=== PATIENT | male | born 1970 | race Caucasian/White ===

== ENCOUNTER 2020-04-30 08:07 | Outpatient (CLI) | payer OTHER, SELFPAY ==
--- NOTE | ~2020-04-30 | US_ITS ---
EXAMINATION: US abdomen limited DATE: 04/30/2020 08:50 INDICATION: Cirrhosis and hepatic encephalopathy. TECHNIQUE: Multiple grayscale and Doppler ultrasound images of the abdomen were obtained. COMPARISON: 01/11/2019 FINDINGS: The pancreatic head and body are normal in appearance. The pancreatic tail is not visualized. Cirrho sis with fine liver surface nodularity and heterogeneous echogenicity with coarsened echotexture. No liver lesion identified. No intrahepatic biliary duct dilation suspected. Portal venous flow was seen in the hepatopetal, normal direction and has normal Doppler waveform. The gallbladder is normal in a ppearance. There is no cholelithiasis. The common bile duct measures 4-5 mm, which is normal. Sonogr aphic Carbajal sign was reported as negative by the wind turbine mechanical engineer. Splenomegaly measuring 17.4 cm in maxi mal length suggesting portal venous hypertension. IMPRESSION: 1. Cirrhosis and splenomegaly suggesting associated portal venous hypertension. Reviewed, dictated and finalized at location A.
--- NOTE | ~2020-04-30 | XR_ITS ---
XR lumbar spine 2-3V DATE: 04/30/2020 08:49 INDICATION: Low back pain. History of fall one year ago. TECHNIQUE: AP, lateral , coned lateral lumbosacral views COMPARISON: 08/05/2019 lumbar spine FINDINGS: The lumbar vertebrae are normally aligned. No fracture or bone destruction or spondylolisth esis. Lumbar pedicles are intact. The lumbar and lumbosacral interspaces are relatively well preserve d. Mild degenerative spurring of the lumbar vertebrae and more prominently at the lower thoracic spin e. The sacroiliac joints appear normal. IMPRESSION: Mild degenerative changes Reviewed, dictated and finalized at location A. IMPRESSION: Mild degenerative changes
[2020-04-30 08:28] LABS: Basophils Percent Auto 1.4 % (0.0-1.0); Eosinophils Absolute Auto 0.24 K/mm3 (0.02-0.50); Eosinophils Percent Auto 3.3 % (1.0-6.0); Hematocrit 33.1 % (40.0-54.0); Hemoglobin 9.8 g/dL (14.0-18.0); Immature Granulocyte Absolute 0.02 K/mm3 (0.00-0.00); Immature Granulocyte Percent A 0.3 % (0.0-0.0); Lymphocytes Absolute Auto 1.97 K/mm3 (1.10-4.50); Mean Corpuscular HGB Conc 29.6 g/dL (32.0-36.0); Mean Corpuscular Hemoglobin 22.8 pg (27.0-31.0); Mean Platelet Volume 11.3 fl (8.7-11.0); Monocytes Absolute Auto 1.01 K/mm3 (0.10-0.90); Monocytes Percent Auto 13.8 % (2.0-11.0); Neutrophils Percent Auto 54.2 % (50.0-70.0); Platelet Count Result 169 K/mm3 (150-420); Red Cell Distribution Width 19.6 % (11.6-14.4); White Blood Count 7.3 K/mm3 (4.8-10.8)
[2020-04-30 08:39] LABS: INR 1.2; Prothrombin Time 12.7 Seconds (9.64-11.0)
[2020-04-30 09:14] LABS: Creatinine Urine 88.99 mg/dL (40-278); MALB Creatinine Ratio 84.7 mg/g (0-30); Microalbumin Urine Random 75.4 mg/L
[2020-04-30 09:18] LABS: Hemoglobin A1C 10.2 % (<5.7)
[2020-04-30 09:39] LABS: Alanine Aminotransferase 33 U/L (16-63); Albumin Level 3.5 g/dL (3.4-5.0); Alkaline Phosphatase 167 U/L (46-116); Anion Gap 15.2 mmol/L (7-16); Aspartate Amino Transferase 59 U/L (15-37); Bilirubin,Total 1.4 mg/dL (0.00-1.00); Blood Urea Nitrogen 5 mg/dL (7-18); Calcium 8.6 mg/dL (8.5-10.1); Carbon Dioxide 26 mmol/L (21-32); Chloride 99 mmol/L (98-108); Estimated Glomerular Filt Rate > 60; Glucose 206 mg/dL (70-99); Osmolality Calculated 285 mOsm/kg (285-295); Potassium 4.2 mmol/L (3.5-5.1); Sodium 136 mmol/L (136-145); Total Protein 8.2 g/dL (6.4-8.2)
[2020-05-02 12:16] LABS: Ceruloplasmin 32 mg/dL (18-36)
== END 2020-04-30 08:08 | disposition home or self-care (01) ==
PROVIDERS: PCP Nurse Practitioner Family; Visit Provider Nurse Practitioner Family
DX: K70.30 Alcoholic cirrhosis of liver without ascites (principal); K21.9 Gastro-esophageal reflux disease without esophagitis; F10.21 Alcohol dependence, in remission; M54.5 Low back pain; E11.9 Type 2 diabetes mellitus without complications
CPT/HCPCS: 36415; 72100; 76705; 80053; 82043; 82390; 83036; 85025; 85610

== ENCOUNTER 2020-05-14 13:18 | Outpatient (CLI) | payer OTHER, SELFPAY ==
--- NOTE | 2020-05-14 13:30 | ECHO_ITS ---
Patient Info Name: Julio Cesar Osman Age: 50 years : 1970 Gender: Male Ht: 70 in Wt: 247 lbs BSA: 2.39 m2 HR: 82 bpm BP: 160 / 92 mmHg Heart Rhythm: Sinus Rhythm Technical Quality: Good Exam Date: 05/14/2020 1:33 PM Exam Location: [facility] Patient Status: Outpatient Admit Date: 05/14/2020 Staff Ordering Physician: Merna Baumann NP Silk Top Hat Body Maker: Benito Juan RDCS Attending Provider: Merna Baumann NP Referring Physician: Pastor DENT; Exam Type: CA echo doppler color flow Study Info Indications I50.9 - Heart failure, unspecified Complete two-dimensional, color flow and Doppler transthoracic echocardiogram is performed. History/Risk Factors Heart failure; SOB, cirrhosis. Summary 1. Left ventricular chamber dimension is normal. 2. Left ventricular systolic function is normal, estimated at 55-60%. 3. There is mildly increased left ventricular wall thickness. 4. The left ventricular diastolic function is normal. 5. E/e' 7 is not elevated. 6. Left atrial chamber dimension is mildly enlarged. Left Ventricle E/e' 7 is not elevated. Left ventricular chamber dimension is normal. Left ventricular systolic function is normal, estimated at 55-60%. There is mildly increased left ventricular wall thickness. The left ventricular diastolic function is normal. Right Ventricle Right ventricular chamber dimension is normal. Right ventricular systolic function is normal. Left Atria Left atrial chamber dimension is mildly enlarged. Right Atria Right atrial chamber dimension is normal. Aortic Valve The aortic valve is trileaflet. There is no aortic valve stenosis. There is no aortic valve regurgitation. Pulmonic Valve There is no pulmonic regurgitation. Mitral Valve There is no mitral valve stenosis. There is no mitral valve regurgitation. Tricuspid Valve There is no tricuspid valve regurgitation. Pericardium/Pleural There is no pericardial effusion. Inferior Vena Cava Normal inferior vena cava with >50% collapse upon inspiration consistent with normal right atrial pressure, 5 mmHg. Aorta The aortic root size at the sinus of Valsalva is normal. Left Ventricular Outflow Tract Name Value Normal LVOT 2D LVOT Diameter 1.9 cm LVOT Doppler LVOT Peak Velocity 143 cm/s LVOT Peak Gradient 8 mmHg LVOT Mean Gradient 4 mmHg LVOT VTI 24 cm LVOT VTI/AV VTI Ratio 0.8 LVOT Stroke Volume 69 ml Mitral Valve Name Value Normal MV Doppler MV Decel Casey 406 cm/s2 MV PHT 59 ms MV Area (PHT) 3.7 cm2 4.0-5.0 MV Diastolic Function -------
== END 2020-05-14 13:19 | disposition home or self-care (01) ==
LOC: CHSIMG 13:21
PROVIDERS: PCP Nurse Practitioner Family; Visit Provider Nurse Practitioner Family
DX: I50.9 Heart failure, unspecified (principal); R06.01 Orthopnea
CPT/HCPCS: 93306

== ENCOUNTER 2021-05-14 12:47 | Outpatient (CLI) | payer OTHER, SELFPAY ==
--- NOTE | ~2021-05-14 | US_ITS ---
EXAMINATION: US venous doppler [facility] DATE: 05/14/2021 13:26 INDICATION: Left lower limb pain and swelling. TECHNIQUE: Grayscale ultrasound images without and with compression and Doppler ultrasound images of the bilateral lower extremity veins were obtained. COMPARISON: None. FINDINGS: The visualized portions of right common femoral vein, profunda (deep) femoral vein, femoral vein, pop liteal vein, peroneal veins, posterior tibial veins, and greater saphenous vein outflow are patent. The visualized portions of left common femoral vein, profunda femoral vein, femoral vein, popliteal v ein, peroneal veins, posterior tibial veins, and greater saphenous vein outflow are patent. IMPRESSION: 1. No deep venous thrombosis. Reviewed, dictated and finalized at location A.
[2021-05-14 13:03] LABS: Basophils Absolute Auto 0.06 K/mm3 (0.00-0.10); Basophils Percent Auto 1.1 % (0.0-1.0); Eosinophils Absolute Auto 0.15 K/mm3 (0.02-0.50); Eosinophils Percent Auto 2.7 % (1.0-6.0); Hemoglobin 9.4 g/dL (14.0-18.0); Immature Granulocyte Absolute 0.01 K/mm3 (0.00-0.00); Immature Granulocyte Percent A 0.2 % (0.0-0.0); Immature Platelet Fraction Pct 5.4 % (1.0-7.0); Lymphocytes Absolute Auto 1.09 K/mm3 (1.10-4.50); Lymphocytes Percent Auto 19.8 % (18.0-42.0); Mean Corpuscular HGB Conc 30.3 g/dL (32.0-36.0); Mean Corpuscular Hemoglobin 22.5 pg (27.0-31.0); Mean Corpuscular Volume 74.3 fL (78.0-102.0); Mean Platelet Volume 10.2 fl (8.7-11.0); Monocytes Absolute Auto 0.62 K/mm3 (0.10-0.90); Monocytes Percent Auto 11.3 % (2.0-11.0); Neutrophils Absolute Auto 3.6 K/mm3 (1.7-7.2); Neutrophils Percent Auto 64.9 % (50.0-70.0); Platelet Count Result 113 K/mm3 (150-420); Red Blood Count 4.17 M/mm3 (4.70-6.10); Red Cell Distribution Width 21.4 % (11.6-14.4); White Blood Count 5.5 K/mm3 (4.8-10.8)
[2021-05-14 13:10] LABS: Hemoglobin A1C 7.7 % (<5.7)
[2021-05-14 13:49] LABS: MALB Creatinine Ratio 17.2 mg/g (0-30); Microalbumin Urine Random 35.1 mg/L
[2021-05-14 14:12] LABS: Alanine Aminotransferase 41 U/L (16-63); Albumin Level 2.8 g/dL (3.4-5.0); Alkaline Phosphatase 221 U/L (46-116); Anion Gap 12 mmol/L (8-16); Aspartate Amino Transferase 71 U/L (15-37); Blood Urea Nitrogen 4 mg/dL (7-18); Calcium 8.3 mg/dL (8.5-10.1); Carbon Dioxide 25 mmol/L (21-32); Chloride 102 mmol/L (98-108); Cholesterol 150 mg/dL (0-200); Estimated Glomerular Filt Rate > 60; Ferritin 19 ng/mL (26-388); Glucose 190 mg/dL (70-99); HDL Direct 24 mg/dL (40-60); Iron 13 ug/dL (65-175); LDL Cholesterol Calculated 104 mg/dL (<130); Osmolality Calculated 289 mOsm/kg (285-295); Percent Iron Saturation 4 % (12-57); Sodium 139 mmol/L (136-145); Total Protein 7.6 g/dL (6.4-8.2); Triglycerides 110 mg/dL (0-150)
[2021-05-14 14:44] LABS: Thyroid Stimulating Hormone Reflex 0.77 u/IU/mL (0.36-3.74)
== END 2021-05-14 12:48 | disposition home or self-care (01) ==
LOC: CHSIMG 12:51
PROVIDERS: PCP Family Medicine; Visit Provider Family Medicine
DX: M79.605 Pain in left leg (principal); D50.9 Iron deficiency anemia, unspecified; E11.9 Type 2 diabetes mellitus without complications; I10 Essential (primary) hypertension
CPT/HCPCS: 36415; 80053; 80061; 82043; 82728; 83036; 83540; 83550; 84443; 85025; 85055; 93970

== ENCOUNTER 2022-01-13 22:14 | Emergency (ER) | payer OTHER, SELFPAY ==
--- NOTE | ~2022-01-13 | CT_ITS ---
EXAMINATION: CT abdomen pelvis wo con DATE: 01/13/2022 23:38 INDICATION: Right upper quadrant abdominal pain. TECHNIQUE: Computed tomography (CT) of the abdomen and pelvis was performed without intravenous contr ast. Automated exposure control and iterative reconstruction technique were employed. The dose-length product was 1316.28 mGy-cm. COMPARISON: 09/10/2017 FINDINGS: Mild bibasilar atelectasis. Heart size is normal. No pericardial or pleural effusion. Interval decrea se in size of a previously enlarged liver, now with subtle liver surface nodularity consistent with c irrhosis. Splenomegaly measuring 16.3 cm craniocaudally, gastroesophageal varices and recanalization of the umbilical vein with periumbilical varices, all findings consistent with secondary portal venou s hypertension. Bilateral adrenal glands are normal. Subtle increased attenuation at the tips of the bilateral renal pyramids suggestive of medullary nephrocalcinosis. High attenuation material likely e ither sludge or gallstones at the neck of the normal decompressed gallbladder with no wall thickening or pericholecystic inflammatory stranding to suggest acute cholecystitis. Nonspecific retroperitonea l stranding in the upper abdomen with trace amount of fluid tracking along the bilateral anterior par arenal spaces. Differential would include acute interstitial pancreatitis although the pancreas appea rs otherwise normal. There is moderate colonic diverticulosis with a sigmoid predominance. There is no adjacent inflammatory change to suggest diverticulitis. Small bowel and appendix are normal. Bladd er is normal. Bilateral small fat-containing inguinal hernias. No free intraperitoneal gas or fluid. No pathologically enlarged abdominal or pelvic lymphadenopathy. Mild lumbar and moderate lower thorac ic spondylosis. IMPRESSION: 1. Cirrhosis with stigmata of portal hypertension including splenomegaly and gastroesophageal and per iumbilical varices. 2. Nonspecific retroperitoneal edema in the upper abdomen which could be related to the cirrhosis and portal venous hypertension with differential including acute interstitial pancreatitis. Correlate wi th amylase and lipase levels. 3. Diverticulosis. 4. High attenuation sludge versus gallstones at the neck of the normal gallbladder. No findings to garcia ggest acute cholecystitis. 5. Increased attenuation at the tips of the bilateral renal pyramids suspicious for medullary nephroc alcinosis. Reviewed, dictated and finalized at location A. ENT WEIGHER IMPRESSION: 1. Cirrhosis with stigmata of portal hypertension including splenomegaly and ga stroesophageal and periumbilical varices. 2. Nonspecific retroperitoneal edema in the upper abdomen which could be relate d to the cirrhosis and portal venous hypertension with differential including a cute interstitial pancreatitis. Correlate with amylase and lipase levels. 3. Diverticulosis. 4. High attenuation sludge versus gallstones at the neck of the normal gallblad christophe. No findings to suggest acute cholecystitis. 5. Increased attenuation at the tips of the bilateral renal pyramids suspicious for medullary nephrocalcinosis.
[2022-01-13 22:25] VITALS: BP 160/80; PULSE 90; RESP 20; TEMP 36.6; O2SAT 95
--- NOTE | 2022-01-13 22:32 | ED.ABDPAIN ---
HPI - Abdominal Pain General Chief Complaint: Abdominal Pain Stated Complaint: stomach pain Time Seen by Provider: 01/13/22 22:32 Source: patient, RN notes reviewed and police Mode of arrival: ambulatory History of Present Illness MD elicited complaint: abdominal pain Onset (ago): day(s) (5) Location: RUQ Severity: similar to previous episodes Quality: aching and dull Radiation: none Exacerbating factors: eating Relieving factors: nothing Associated symptoms: denies other symptoms Related Data Home Medications Medication Instructions Recorded Confirmed gabapentin 100 mg PO TID 01/13/22 01/13/22 insulin glargine [Lantus Solostar 10 unit SUB-Q DAILY 01/13/22 01/13/22 U-100 Insulin] Allergies Allergy/AdvReac Type Severity Reaction Status Date / Time iohexol Allergy Difficulty Verified 01/13/22 22:24 [From contrast - CT, X-RAY] Breathing Review of Systems Review of Systems: All systems reviewed & are unremarkable except as noted in HPI and below Constitutional: Constitutional: Denies chills and Denies fever(s) Gastrointestinal: Gastrointestinal: Denies diarrhea, Denies nausea and Denies vomiting PMFSH Past Medical History Medical History Acute alcoholic hepatitis 2017 Alcoholic Alcoholic cirrhosis Anemia CHF (congestive heart failure) DM2 (diabetes mellitus, type 2) ANURAG (generalized anxiety disorder) GERD (gastroesophageal reflux disease) GI bleed 2017 Hypertension Iron deficiency anemia Left leg pain Lower respiratory infection (e.g., bronchitis, pneumonia, pneumonitis, pulmonitis) Nicotine dependence Nicotine dependence Other chronic pain Overweight Restless leg syndrome Sleep apnea Surgical History Surgical History No history of previous surgery Family History Family History Mother Alcoholic Cancer Father Heart disease Other Family history of malignant neoplasm Social History Social History Social History: Smoking packs per day: 0.5 Smoking cigarettes per day: 10.0 Years smoked: 36 Smoking pack-years: 18.00 Smoking status: Current every day smoker Tobacco type: cigarettes Alcohol intake: former Substance use: current Substance use type: marijuana Other substance usage details: occiassionally Additional occupation/education comments: disabled Gender identity (if verbalized by the patient): Male Exam Const: General: healthy appearing and no acute distress Nutritional Appearance: obese morbidly obese Orientation/consciousness: patient oriented x3 HENMT: Head: normal to inspection Ears: external ears normal Eyes: Conjunctivae: conjunctivae normal Pupils: Equal, round and reactive pupils present EOM: EOMs intact bilaterally Neck: Neck: normal visual inspection Resp: Effort & Inspection: normal respiratory effort Auscultation: clear to auscultation bilaterally Cardio: Rate: regular rate Rhythm: regular rhythm GI: Inspection: obesity GI Palp: Yes Soft to palpation, Yes Tenderness to palpation present (GI) (RUQ With the positive Carbajal sign), Yes Guarding due to palpation present (GI) and No Rebound tenderness present Back/Spine/Pelvis: Cervical Spine: cervical ROM normal Thoracic/Lumbar Spine: thoraco-lumbar ROM normal Skin: General skin exam: normal color Rashes: no rashes Neuro: General: patient oriented x3, moves all extremities, no focal motor deficits and CN's II-XI intact bilaterally Speech: normal speech Gait exam (Neuro): Normal gait present Extrem: General: normal to inspection and no clubbing, cyanosis or edema Psych: Appearance: grossly normal and well kempt Mental Status: mental status grossly normal Affect: normal affect Attitude: cooperative Thought content: Yes Normal thought
--- NOTE | 2022-01-13 22:50 | PC.NURSE ---
Maxim Hassan M.D. liver specialist. ([phone])
[2022-01-13 22:52] LABS: Basophils Absolute Auto 0.06 K/mm3 (0.00-0.10); Basophils Percent Auto 0.9 % (0.0-1.0); Eosinophils Absolute Auto 0.21 K/mm3 (0.02-0.50); Eosinophils Percent Auto 3.2 % (1.0-6.0); Hematocrit 42.7 % (40.0-54.0); Immature Granulocyte Absolute 0.01 K/mm3 (0.00-0.00); Immature Granulocyte Percent A 0.2 % (0.0-0.0); Immature Platelet Fraction Pct 7.2 % (1.0-7.0); Lymphocytes Absolute Auto 1.82 K/mm3 (1.10-4.50); Lymphocytes Percent Auto 28.1 % (18.0-42.0); Mean Corpuscular HGB Conc 32.8 g/dL (32.0-36.0); Mean Corpuscular Volume 88.4 fL (78.0-102.0); Mean Platelet Volume 10.5 fl (8.7-11.0); Monocytes Percent Auto 13.9 % (2.0-11.0); Neutrophils Absolute Auto 3.5 K/mm3 (1.7-7.2); Neutrophils Percent Auto 53.7 % (50.0-70.0); Platelet Count Result 93 K/mm3 (150-420); Red Blood Count 4.83 M/mm3 (4.70-6.10); Red Cell Distribution Width 20.7 % (11.6-14.4); White Blood Count 6.5 K/mm3 (4.8-10.8)
[2022-01-13 23:11] LABS: Lactic Acid Reflex 1.3 mmol/L (0.4-2.0)
[2022-01-13 23:12] LABS: INR 1.3; Partial Thromboplastin Time 30.9 SEC (23.90-30.70)
[2022-01-13 23:16] LABS: Alanine Aminotransferase 33 U/L (16-63); Albumin Level 3.3 g/dL (3.4-5.0); Alkaline Phosphatase 271 U/L (46-116); Ammonia 49 umol/L (11-32); Anion Gap 10 mmol/L (8-16); Aspartate Amino Transferase 65 U/L (15-37); Bilirubin,Total 1.9 mg/dL (0.00-1.00); Blood Urea Nitrogen 4 mg/dL (7-18); Calcium 8.8 mg/dL (8.5-10.1); Carbon Dioxide 29 mmol/L (21-32); Chloride 100 mmol/L (98-108); Estimated CRCL calculation 116 ml/min; Estimated Glomerular Filt Rate > 60; Glucose 257 mg/dL (70-99); Lipase 85 U/L (73-393); Osmolality Calculated 293 mOsm/kg (285-295); Potassium 3.9 mmol/L (3.5-5.1); Sodium 139 mmol/L (136-145); Total Protein 8.7 g/dL (6.4-8.2)
[2022-01-13 23:17] LABS: Ethanol 204 mg/dL (0-6)
[2022-01-14] MEDS: DICYCLOMINE HCL INJ 20 MG/2 ML VIAL IM (00:19)
[2022-01-14 00:20] VITALS: BP 154/88; PULSE 88; RESP 20; O2SAT 95
[2022-01-14 01:55] VITALS: BP 159/80; PULSE 89; RESP 20; TEMP 36.6; O2SAT 95
== END 2022-01-14 01:56 | disposition home or self-care (01) ==
PROVIDERS: Emergency Provider Emergency Medicine; PCP Nurse Practitioner Family
DX: E72.20 Disorder of urea cycle metabolism, unspecified (principal); K80.20 Calculus of gallbladder without cholecystitis without obstruction
CPT/HCPCS: 36415; 74176; 80053; 80307; 82140; 83605; 83690; 85025; 85055; 85610; 85730; 96372; 99284; J0500

== ENCOUNTER 2022-02-07 08:15 | Outpatient (CLI) | payer OTHER, SELFPAY ==
--- NOTE | ~2022-02-07 | US_ITS ---
EXAMINATION: US abdomen limited EXAM DATE: 02/07/2022 08:45 INDICATION: R10.11 - Right upper quadrant pain. TECHNIQUE: Multiple grayscale and Doppler images of the abdomen right upper quadrant were obtained (b y a technologist who performed the scan) and subsequently reviewed. Comparison is made to prior exami nation from 04/30/2020. FINDINGS: The pancreatic head and body are normal in appearance. The pancreatic tail is not visualized. Some liver contour undulations could indicate cirrhosis. Mildly diffusely heterogeneous echogenicity. The re are no focal liver lesions identified. There is no evidence of intrahepatic biliary duct dilatio n. Portal venous flow was seen in the hepatopedal, normal direction and has normal Doppler waveform. No right-sided hydronephrosis. Common bile duct measures 5 mm, which is normal. The gallbladder wall is normal in thickness, with ex pected amount of distention. No sonographic evidence of pericholecystic fluid. Multiple small galls tones are present. Technologist performing exam reports patient did not demonstrate sonographic Murp hy's sign. Please note that this sign is less reliable in patients who have received pain medication . IMPRESSION: Mildly heterogeneous liver with undulations, cirrhosis. Cholelithiasis. Reviewed, dictated and finalized at location D. IMPRESSION: Mildly heterogeneous liver with undulations, cirrhosis. Cholelithia sis.
== END 2022-02-07 08:16 | disposition home or self-care (01) ==
LOC: CHSIMG 08:17
PROVIDERS: PCP Nurse Practitioner Family; Visit Provider Surgery
DX: R10.11 Right upper quadrant pain (principal); K80.20 Calculus of gallbladder without cholecystitis without obstruction; K70.30 Alcoholic cirrhosis of liver without ascites
CPT/HCPCS: 76705

== ENCOUNTER 2022-02-25 14:53 | Outpatient (CLI) | payer OTHER, SELFPAY ==
[2022-02-25 15:08] LABS: Hematocrit 42.1 % (40.0-54.0); Hemoglobin 14.1 g/dL (14.0-18.0); Immature Platelet Fraction Pct 6.6 % (1.0-7.0); Mean Corpuscular HGB Conc 33.5 g/dL (32.0-36.0); Mean Corpuscular Hemoglobin 32.6 pg (27.0-31.0); Mean Corpuscular Volume 97.2 fL (78.0-102.0); Mean Platelet Volume 11.1 fl (8.7-11.0); Platelet Count Result 100 K/mm3 (150-420); Red Blood Count 4.33 M/mm3 (4.70-6.10); Red Cell Distribution Width 14.7 % (11.6-14.4); White Blood Count 5.2 K/mm3 (4.8-10.8)
== END 2022-02-25 14:54 | disposition home or self-care (01) ==
LOC: CHSLAB 14:56
PROVIDERS: PCP Nurse Practitioner Family; Visit Provider Internal Medicine Gastroenterology
DX: K92.1 Melena (principal)
CPT/HCPCS: 36415; 85027; 85055

== ENCOUNTER 2022-03-22 12:23 | Emergency (ER) | payer OTHER, SELFPAY ==
--- NOTE | ~2022-03-22 | XR_ITS ---
XR ankle LT 2V DATE: 03/22/2022 12:59 INDICATION: Injury TECHNIQUE: 2 views COMPARISON: None FINDINGS: There is soft tissue swelling of the ankle. No fracture or dislocation of the ankle or disr uption of the ankle mortise is detected. Mild plantar and posterior calcaneal enthesopathy. Again noted is a bony density at the dorsal aspect of the tarsometatarsal area, of uncertain signific ance; differential diagnosis includes anatomic variant (os intermetatarsal and) versus fracture. IMPRESSION: No fracture or dislocation of ankle Reviewed, dictated and finalized at location A.
--- NOTE | ~2022-03-22 | CT_ITS ---
CT foot LT wo con DATE: 03/22/2022 13:49 INDICATION: Fall. Foot injury. TECHNIQUE: Axial images with sagittal and coronal reconstructions Exam dose: 431.83 mGy-cm total exam DLP. COMPARISON: 03/22/2022 left foot and left ankle FINDINGS: There is a cortical fracture at the posterior aspect of the base of the fourth metatarsal b one, with minimal displacement. Mild osteoarthritis at the first metatarsophalangeal joint. Mild posterior and plantar calcaneal enthesopathy. Os intermetatarseum is noted, which accounts for the bony density along the dorsal aspect of the tars ometatarsal junction on plain radiographic evaluation. IMPRESSION: Fracture of the posterior medial base of the fourth metatarsal bone Reviewed, dictated and finalized at Location A. Reviewed, dictated and finalized at location A.
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
[2022-03-22 12:33] VITALS: BP 163/85; PULSE 93; RESP 19; TEMP 36.4; O2SAT 98
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
[2022-03-22] MEDS: KETOROLAC (*BKC) 60 MG/2 ML VIAL IM (12:46)
[2022-03-22 14:20] VITALS: BP 151/80; PULSE 89; RESP 16; TEMP 36.4; O2SAT 98
== END 2022-03-22 14:27 | disposition home or self-care (01) ==
PROVIDERS: Emergency Provider Emergency Medicine; PCP Nurse Practitioner Family
DX: S92.902A Unspecified fracture of left foot, initial encounter for closed fracture (principal); W22.8XXA Striking against or struck by other objects, initial encounter
CPT/HCPCS: 73600; 73620; 73700; 96372; 99284; J1885; L2112

== ENCOUNTER 2022-03-26 01:09 | Day surgery (SDC) | payer OTHER, SELFPAY ==
[2022-03-24 10:19] VITALS: BMI 34.8
--- NOTE | 2022-03-24 10:25 | SUR.PREOP ---
Report to the Outpatient Waiting Room, entrance under the green pavilion located off [facility], at time 1000 on date 03/26/22. OR Time: 1200. - You and your visitor will be asked a series of questions to screen for COVID 19 for your protection. - Only one visitor is allowed at this time. - The patient visitor is requested to leave or wait in car when not with patient. - A mask is required within the hospital. Patients may have clear liquids (water, carbonated beverages, clear teas, apple juice) until 3 hours prior to surgery with a maximum of 20 ounces. - NO CLEAR LIQUIDS AFTER 0900 - No food from midnight until time of surgery - Infants may have breast milk until 4 hours before surgery, formula 6 hours prior to surgery. - Children will be allowed to drink immediately following surgery. If applicable, please bring a bottle or sippy cup to assist with drinking. Juice, water, soda, and popsicles are readily available. For infants on formula, please bring formula the day of surgery. Pacifiers are allowed. Take the following medications with a SIP of water the morning of surgery: CYCLOBENZAPTINE, OXYCODONE/ACETAMINOPHEN, PROPRANOLOL, BRING YOUR ALBUTEROL INHALER WITH YOU THE DAY OF SURGERY Please no make-up, nail bulgarian, hairspray, perfume, deodorant, or body powder the day of surgery. No jewelry (including any body piercings) or valuables the day of surgery, leave them at home. Please take a shower or bath the night before, or the morning of, surgery with HIBICLENS soap. Wear comfortable, loose fitting clothing. Children are encouraged to wear pajamas. - Jewelry must be removed prior to entering the operating room. Rings and piercings that are not removed may be cut off. - The hospital will not accept responsibility for valuables. - Please leave all valuables, including medications, at home the day of surgery. If you are going home after surgery, a licensed driver wheelchair must drive you home. - NO public transportation without another adult. - We recommend that an adult stay with you for 24 hours following discharge. - We also recommend that you do not drive, make important decision, drink alcoholic beverages, or take any drugs that were not prescribed by your health care provider for at least 24 hours after your discharge time. For Pediatric surgeries, we recommend two adults accompany the child home (only one inside the building at this time). Follow any additional instructions given to you from your surgeon. If you or anyone in your household have experienced Covid symptoms in the past week, please notify your surgeon or the nurse liaison at the phone number below for possible testing. Telephone instructions given to KEVIN HEADLEY JR. and asked if any additional questions and then verbalized understanding. Patient advised to call surgeon office or pre surgery nurse liaison [phone] if any additional questions.
--- NOTE | 2022-03-25 09:27 | WPDANESEPPF ---
Anes - Initial Pre Proc Eval Procedure: Operation Date: 03/26/22 11:00 Proposed Procedures p Laparoscopic Cholecystectomy, Possible Open - Alan Araya DO Date/Time: 03/25/22 09:27 Surgeon: Alan Araya DO Pre Op Diagnosis: rt upper quad abdominal pain,symptomatic cholelith Patient Data Age: 51 Gender: M Height: 1.75 m Weight: 107 kg Allergies Allergy/AdvReac Type Severity Reaction Status Date / Time iohexol Allergy Severe Difficulty Verified 03/26/22 09:03 [From contrast - CT, X-RAY] Breathing Home Medications Medication Instructions Recorded Confirmed Type blood sugar diagnostic #100 each 06/05/20 03/22/22 Rx lancets 30 gauge 30 gauge MISCELLANEOUS TID #100 ea 09/24/20 03/24/22 Rx pen needle, diabetic 31 gauge x See Rx Instructions .ROUTE 11/29/21 03/24/22 Rx /16 .COMPLEX #100 ea propranolol 10 mg tablet 10 mg PO TID #270 tablet 11/29/21 03/24/22 Rx insulin glargine [Lantus Solostar 20 unit SUB-Q DAILY 01/13/22 03/26/22 History U-100 Insulin] lactulose 20 g PO BID #1200 ml 01/14/22 03/24/22 Rx omeprazole 40 mg capsule,delayed 40 mg PO DAILY #30 cap 02/25/22 03/24/22 Rx release pen needle, diabetic 31 gauge x #100 ea 03/14/22 03/22/22 Rx 03/24 oxycodone-acetaminophen [Percocet] 1 tablet PO Q6H PRN #20 tablet 03/22/22 03/24/22 Rx albuterol sulfate 2 puff INHALATION PRN PRN 03/24/22 03/26/22 History amitriptyline 10 mg PO PRN PRN 03/24/22 03/26/22 History atorvastatin 40 mg PO DAILY 03/24/22 03/26/22 History cyclobenzaprine 10 mg PO BID 03/24/22 03/26/22 History ferrous sulfate 325 mg PO DAILY 03/24/22 03/26/22 History furosemide 20 mg PO PRN 03/24/22 03/26/22 History insulin lispro [Humalog KwikPen 10 unit SUB-Q TID PRN 03/24/22 03/26/22 History Insulin] liraglutide [Victoza 2-Jayson] 12 mg SUBCUT DAILY 03/24/22 03/26/22 History Patient hx anesthesia problems: none Family hx anesthesia problems: none Results Review: All pre-operative results and documents have been reviewed as part of the pre-operative evaluation. FORMERLY [facility] Past Medical History Medical History Acute alcoholic hepatitis 2017 Adenomatous colon polyp Alcoholic Alcoholic cirrhosis Anemia CHF (congestive heart failure) DM2 (diabetes mellitus, type 2) ANURAG (generalized anxiety disorder) GERD (gastroesophageal reflux disease) GI bleed 2017 History of depression History of stomach ulcers Hx of hyperlipidemia Hypertension Iron deficiency anemia Left leg pain Liver encephalopathy Lower respiratory infection (e.g., bronchitis, pneumonia, pneumonitis, pulmonitis) Melena Nicotine dependence Nicotine dependence Other chronic pain Overweight Peptic ulcer disease Restless leg syndrome Sleep apnea Surgical History Surgical History H/O foot surgery Hx of excision of dermoid cyst No history of previous surgery Family History Family History Mother Alcoholic Cancer Dementia Father Heart disease Other Diabetes mellitus Family history of malignant neoplasm Hypertension Social History Social History Social History: Smoking packs per day: 0.5 Smoking cigarettes per day: 10.0 Years smoked: 40 Smoking pack-years: 20.00 Smoking status: Current every day smoker Tobacco type: cigarettes Additional smoking assessment comments: 1/2 pack a day Alcohol intake: former Substance use: current Substance use type: marijuana Other substance usage details: occiassionally Living arrangements: with family Additional occupation/education comments: disabled Gender identity (if verbalized by the patient): Male Spiritual care concerns: No Anes - Eval Final PreProcedure Day of Procedure 03/25/22 09:27 Patient weight: obese Heart
[2022-03-26] VITALS (13 sets, daily range): BP systolic 138–166; BP diastolic 70–89; PULSE 77–110; RESP 12–20; TEMP 35.7–37.3; O2SAT 92–99; BMI 35.8
--- NOTE | 2022-03-26 07:56 | ECG_ITS ---
Measurements Intervals [place] Rate: 90 P: 50 DE: 174 QRS: -11 QRSD: 107 T: 34 QT: 374 QTc: 460 Interpretive Statements SINUS RHYTHM MINIMAL Q WAVES- HIGH LATERAL LEADS BORDERLINE ECG Electronically Signed On 03-26-2022 10:20:20 CDT by Kiel Dorsey D.O.
--- NOTE | 2022-03-26 09:37 | PM.IMHP ---
H&P: HPI History of Present Illness Date/Time: 03/26/22 09:37 Chief Complaint: RUQ pain Narrative: 51 yo man presents for Lap shannon. He had a recent foot injury and has a bruise on his left abdomen, but denies any other changes since last seen in office. Thorough discussion was previously made with the patient about his surgical risks due to his cirrhosis, and patient understands these risks and wishes to proceed with surgery. Review of Systems Review of Systems: All systems reviewed & are unremarkable except as noted in HPI and below Constitutional: Constitutional: Denies chills, Denies fever(s), Denies headache(s) and Denies weight loss Eyes: Eyes: Denies change in vision ENT: Denies dizziness, Denies headache(s), Denies neck mass and Denies throat swelling Cardiovascular: Cardiovascular: Denies chest pain, Denies lightheadedness and Denies dyspnea Respiratory: Respiratory: Denies cough, Denies dyspnea and Denies wheezing Gastrointestinal: Gastrointestinal: Denies abdominal pain, Denies change in bowel habits, Denies nausea and Denies vomiting Genitourinary: Genitourinary: Denies hematuria and Denies dysuria Musculoskeletal: Musculoskeletal: Reports as per HPI Integumentary/Breasts: Skin/Breast: Reports as per HPI Comments: ecchymosis across LLQ Neurologic: Denies dizziness and Denies headache(s) Allergic/Immunologic: Allergic/Immunologic: Denies throat swelling and Denies wheezing PMFSH Past Medical History Medical History Acute alcoholic hepatitis 2017 Adenomatous colon polyp Alcoholic Alcoholic cirrhosis Anemia CHF (congestive heart failure) DM2 (diabetes mellitus, type 2) ANURAG (generalized anxiety disorder) GERD (gastroesophageal reflux disease) GI bleed 2017 History of depression History of stomach ulcers Hx of hyperlipidemia Hypertension Iron deficiency anemia Left leg pain Liver encephalopathy Lower respiratory infection (e.g., bronchitis, pneumonia, pneumonitis, pulmonitis) Melena Nicotine dependence Nicotine dependence Other chronic pain Overweight Peptic ulcer disease Restless leg syndrome Sleep apnea Surgical History Surgical History H/O foot surgery Hx of excision of dermoid cyst No history of previous surgery Family History Family History Mother Alcoholic Cancer Dementia Father Heart disease Other Diabetes mellitus Family history of malignant neoplasm Hypertension Social History Social History Social History: Smoking packs per day: 0.5 Smoking cigarettes per day: 10.0 Years smoked: 40 Smoking pack-years: 20.00 Smoking status: Current every day smoker Tobacco type: cigarettes Additional smoking assessment comments: 1/2 pack a day Alcohol intake: former Substance use: current Substance use type: marijuana Other substance usage details: occiassionally Living arrangements: with family Additional occupation/education comments: disabled Gender identity (if verbalized by the patient): Male Spiritual care concerns: No Meds Home Medications and Allergies Home Medications Medication Instructions Recorded Confirmed Type blood sugar diagnostic #100 each 06/05/20 03/22/22 Rx lancets 30 gauge 30 gauge MISCELLANEOUS TID #100 ea 09/24/20 03/24/22 Rx pen needle, diabetic 31 gauge x See Rx Instructions .ROUTE 11/29/21 03/24/22 Rx 01/22 .COMPLEX #100 ea propranolol 10 mg tablet 10 mg PO TID #270 tablet 11/29/21 03/24/22 Rx insulin glargine [Lantus Solostar 20 unit SUB-Q DAILY 01/13/22 03/26/22 History U-100 Insulin] lactulose 20 g PO BID #1200 ml 01/14/22 03/24/22 Rx omeprazole 40 mg capsule,delayed 40 mg PO DAILY #30 cap 02/25/22 03/24/22 Rx release pen needle, diabetic 31 gauge
[2022-03-26 09:44] LABS: Glucose Point of Care 154 mg/dl (65-105)
[2022-03-26] MEDS: LACTATED RINGERS 1,000 ML 30 ML IV CONT ×2 (09:48→12:19)
[2022-03-26] MEDS: ACETAMINOPHEN 500 MG TABLET 1000 MG PO (09:48)
[2022-03-26] MEDS: KETOROLAC 15 MG/ML VIAL (*BKC) IV PUSH (09:48)
[2022-03-26 09:54] LABS: Hematocrit 39.7 % (42.0-52.0); Hemoglobin 13.3 g/dL (14.0-18.0); Immature Platelet Fraction Pct 11.7 % (0.9-11.2); Mean Corpuscular HGB Conc 33.5 g/dl (32-36); Mean Corpuscular Volume 98.5 fl (80-100); Mean Platelet Volume 11.9 fl (7.4-10.4); Platelet Count Result 83 k/mm3 (150-375); Red Blood Count 4.03 M/mm3 (4.6-6.20); Red Cell Distribution Width 12.6 % (11.5-14.5); White Blood Count 5.1 K/mm3 (4.5-10.0)
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
[2022-03-26 10:05] LABS: INR 1.4; Prothrombin Time 16.6 Seconds (11.1-14.7)
[2022-03-26 10:06] LABS: Alanine Aminotransferase 28 U/L (6-50); Albumin Level 3.9 g/dL (3.5-5.1); Alkaline Phosphatase 200 U/L (38-126); Amylase 63 U/L (30-110); Anion Gap 11 mmol/L (8-16); Aspartate Amino Transferase 70 U/L (17-59); Bilirubin,Total 4.4 mg/dL (0.2-1.3); Blood Urea Nitrogen 6 mg/dL (9-20); Calcium 8.9 mg/dL (8.4-10.2); Carbon Dioxide 25 mmol/L (22-30); Chloride 99 mmol/L (98-107); Estimated CRCL calculation 150 ml/min; Estimated Glomerular Filt Rate > 60; Glucose 158 mg/dL (65-110); Lipase 100 U/L (23-300); Partial Thromboplastin Time 33.3 SECONDS (22.3-36.8); Sodium 135 mmol/L (137-145)
--- NOTE | 2022-03-26 10:51 | WPDHPUPDATE1 ---
History and Physical Update Update Date/Time: 03/26/22 10:51 History and Physical has been reviewed, including an updated exam of the patient. There are NO changes in the patient's condition. Risks, benefits, and alternatives have been discussed and questions answered. Patient agrees to proceed with procedure.
[2022-03-26] MEDS: ceFAZolin 2 GM/D5W 50 ML 2 GM/50 ML BAG IVPB ×2 (10:54→18:24)
--- NOTE | 2022-03-26 12:25 | W.PM.PROC2 ---
Procedure Note - Detailed Date of Procedure 03/26/22 Pre-op Diagnosis Symptomatic cholelithiasis, cirrhosis, portal hypertension Post-op Diagnosis Same Procedure Performed Laparoscopic Cholecystectomy Surgeon Alan Araya, DO Anesthesia General and Local (0.5% bupivacaine) Indications This is a 51-year-old man who presented with right upper quadrant pain for the past 2 months. He had previously been to the emergency department with this. He has a longstanding history of cirrhosis and this has been monitored closely claim auditor at [facility]. He has also seen our quality control tester here at [facility]. A CT of his abdomen and pelvis showed evidence of cholelithiasis and cirrhosis with portal hypertension. His cirrhosis appeared stable at the time and he has not had any problems with ascites or bleeding esophageal varices. Discussions were made with the patient that he will be high risk for bleeding and a trial of dietary modifications was given. Follow-up ultrasound showed evidence of cholelithiasis but no evidence of cholecystitis. Further discussion was made with the patient about treatment options was still having significant pain and wanted to pursue laparoscopic cholecystectomy. Decision was made to proceed with laparoscopic cholecystectomy. Findings Laparoscopic cholecystectomy was performed. Patient was found to have evidence of cirrhosis and the liver bed bled very easily. The surgery was technically difficult due to the amount easily bleeding tissue the gallbladder. Total blood loss for the surgery was 200 mL. This is about 10 times as much as a straight for laparoscopic cholecystectomy. Critical view was identified with the cystic duct entering into the neck the gallbladder and the cystic artery running up along wall of the gallbladder. Both structures were clipped and cut. There did appear to be a vessel running along the cystic duct was bleeding even after clipping the duct. This area bled significantly until vessel was able to be grasped ligated with another clip. After this, bleeding appeared to be minimal along the gallbladder fossa. I did spray Surgiflo and placed Surgicel to help with hemostasis. After careful inspection, there did not appear to be any more significant bleeding along the gallbladder fossa or junito hepatitis. The gallbladder was removed and sent to the lab for pathology. Description of Procedure Procedure as well as risks, benefits, and alternatives were discussed with patient. Written consent was obtained and placed in chart prior to procedure. The patient was brought back to surgical suite. Patient was placed in supine position on operating table. Time-out was done to confirm patient and procedure. Patient was then intubated by the anesthesia department. Abdomen was prepped and draped in sterile fashion using chlorhexidine prep. 0.5% bupivacaine with epinephrine was infiltrated at each site of incision. A 5 millimeter incision was made near the umbilicus, and a 5 millimeter Optiview trocar was advanced through the abdominal layers under direct visualization. Once inside the abdominal cavity, carbon dioxide was insufflated to create a pneumoperitoneum. The camera was inserted and the abdomen was inspected. No immediate abnormalities were identified. The patient was placed in reverse Trendelenburg position and rotated slightly to the left. An 11 millimeter incision was made in the subxiphoid region, and an 11 millimeter trocar was inserted under direct visualization. Two 5 millimeter incisions were made in the right upper quadrant, and two 5 millimeter trocars were inserted under direct visualization. The gallbladder was identified and grasped at the fundus and retracted superiorly. It was then grasped at the infundibulum retracted laterally. Careful dissection around the neck of the gallbladder was performed using blunt dissection with a [place] grasper and hook electrocautery. The cystic duct was ident
[2022-03-26 13:01] LABS: Glucose Point of Care 183 mg/dl (65-105)
[2022-03-26] MEDS: fentaNYL CITRATE INJ (*CRX) 100 MCG/2 ML VIAL 25 MCG IV PUSH ×2 (13:09→13:18)
--- NOTE | 2022-03-26 14:18 | ADMGEN ---
This patient, Julio Cesar Osman Jr., was admitted to Medical Room 261-01. Patient/family oriented to hospital policies and general routines including ID bracelet, bed and alarms, visiting hours, pain management, procedures, bathroom and other care routines, personal items, smoking policy, room service/diet, and visiting hours. Information on how to activate the Rapid Response Team has been discussed. Patient/Family are encouraged to report perceived risks to care and to ask questions if they do not understand what they are told or what they should do.
[2022-03-26 14:32] LABS: Glucose Point of Care 204 mg/dl (65-105)
[2022-03-26] MEDS: PROPRANOLOL HCL 10 MG TABLET PO ×2 (15:02→22:26)
[2022-03-26] MEDS: LACTATED RINGERS 1,000 ML 100 ML IV CONT (15:02)
[2022-03-26] MEDS: oxyCODONE/ACETAMINOPHEN (*CRX) 5-325 MG TABLET 1 TABLET PO (15:39)
[2022-03-26] MEDS: CYCLOBENZAPRINE HCL 10 MG TABLET PO (16:28)
[2022-03-26 16:34] LABS: Glucose Point of Care 398 mg/dl (65-105)
[2022-03-26 16:51] LABS: Hematocrit 38.7 % (42.0-52.0); Immature Platelet Fraction Pct 9.9 % (0.9-11.2); Mean Corpuscular HGB Conc 33.6 g/dl (32-36); Mean Corpuscular Hemoglobin 33.8 pg (26-34); Mean Corpuscular Volume 100.5 fl (80-100); Mean Platelet Volume 11.2 fl (7.4-10.4); Platelet Count Result 77 k/mm3 (150-375); Red Blood Count 3.85 M/mm3 (4.6-6.20); Red Cell Distribution Width 12.6 % (11.5-14.5); White Blood Count 4.5 K/mm3 (4.5-10.0)
[2022-03-26 17:01] LABS: INR 1.5; Prothrombin Time 17.6 Seconds (11.1-14.7)
[2022-03-26] MEDS: INSULIN ASPART (*BKC) 100 UNITS/ML SUB-Q (17:07)
[2022-03-26] MEDS: oxyCODONE/ACETAMINOPHEN (*CRX) 5-325 MG TABLET 2 TABLET PO (20:19)
[2022-03-26] MEDS: INSULIN GLARGINE (*BKC) 100 UNITS/ML 20 UNITS SUB-Q (22:26)
[2022-03-26] MEDS: INSULIN HUMAN REGULAR (*BKC) 100 UNITS/ML 25 UNITS SUB-Q (22:27)
[2022-03-27 00:20] LABS: Glucose Point of Care 485 mg/dl (65-105)
[2022-03-27 00:20] LABS: Glucose Point of Care 376 mg/dl (65-105)
[2022-03-27 00:23] VITALS: BP 141/65; PULSE 104; RESP 18; TEMP 36.6; O2SAT 96
[2022-03-27] MEDS: ceFAZolin 2 GM/D5W 50 ML 2 GM/50 ML BAG IVPB (02:47)
[2022-03-27 03:39] VITALS: BP 116/52; PULSE 94; RESP 16; TEMP 36.8; O2SAT 95
[2022-03-27 06:01] LABS: Hemoglobin 12.3 g/dL (14.0-18.0); Mean Corpuscular HGB Conc 34.2 g/dl (32-36); Mean Corpuscular Hemoglobin 33.1 pg (26-34); Mean Corpuscular Volume 96.8 fl (80-100); Platelet Count Result 77 k/mm3 (150-375); Red Blood Count 3.72 M/mm3 (4.6-6.20); Red Cell Distribution Width 12.2 % (11.5-14.5); White Blood Count 9.2 K/mm3 (4.5-10.0)
[2022-03-27 06:14] LABS: INR 1.5
[2022-03-27 06:24] LABS: Alanine Aminotransferase 29 U/L (6-50); Albumin Level 3.6 g/dL (3.5-5.1); Alkaline Phosphatase 182 U/L (38-126); Anion Gap 7 mmol/L (8-16); Aspartate Amino Transferase 70 U/L (17-59); Bilirubin,Total 3.6 mg/dL (0.2-1.3); Blood Urea Nitrogen 11 mg/dL (9-20); Calcium 8.6 mg/dL (8.4-10.2); Carbon Dioxide 23 mmol/L (22-30); Chloride 99 mmol/L (98-107); Estimated CRCL calculation 150 ml/min; Estimated Glomerular Filt Rate > 60; Glucose 235 mg/dL (65-110); Sodium 129 mmol/L (137-145)
[2022-03-27 07:42] LABS: Glucose Point of Care 219 mg/dl (65-105)
[2022-03-27] MEDS: INSULIN ASPART (*BKC) 100 UNITS/ML SUB-Q (07:50)
[2022-03-27 08:00] VITALS: BP 137/71; PULSE 90; RESP 16; TEMP 36.8; O2SAT 96
[2022-03-27] MEDS: oxyCODONE/ACETAMINOPHEN (*CRX) 5-325 MG TABLET 1 TABLET PO (08:12)
[2022-03-27 08:13] VITALS: PULSE 97
[2022-03-27] MEDS: FERROUS SULFATE 324 MG TABLET PO (08:13)
[2022-03-27] MEDS: PROPRANOLOL HCL 10 MG TABLET PO (08:13)
[2022-03-27] MEDS: LACTULOSE 20 GM/30 ML UDC PO (08:14)
[2022-03-27] MEDS: ATORVASTATIN 40 MG TABLET PO (08:14)
[2022-03-27] MEDS: CYCLOBENZAPRINE HCL 10 MG TABLET PO (08:16)
== END 2022-03-27 09:51 | disposition home or self-care (01) ==
LOC: ANHSURGERY 08:45 → ANH2MED 14:00
PROVIDERS: Anesthesiology; PCP Nurse Practitioner Family; Visit Provider Surgery
PROC: 0FT44ZZ Resection of Gallbladder, Percutaneous Endoscopic Approach (ICD-10-PCS; CPT 47562; principal; 2022-03-26 11:00)
DX: K80.10 Calculus of gallbladder with chronic cholecystitis without obstruction (principal); K70.30 Alcoholic cirrhosis of liver without ascites; K76.6 Portal hypertension; E78.5 Hyperlipidemia, unspecified; E11.9 Type 2 diabetes mellitus without complications; I11.0 Hypertensive heart disease with heart failure; I50.9 Heart failure, unspecified; D64.9 Anemia, unspecified; F41.1 Generalized anxiety disorder; K21.9 Gastro-esophageal reflux disease without esophagitis; D50.9 Iron deficiency anemia, unspecified; G25.81 Restless legs syndrome; G47.30 Sleep apnea, unspecified; Z87.11 Personal history of peptic ulcer disease; F17.210 Nicotine dependence, cigarettes, uncomplicated; F12.90 Cannabis use, unspecified, uncomplicated; Z79.4 Long term (current) use of insulin; Z79.51 Long term (current) use of inhaled steroids; Z79.899 Other long term (current) drug therapy; E66.9 Obesity, unspecified; Z68.35 Body mass index [BMI] 35.0-35.9, adult
CPT/HCPCS: 47562; 36415; 80053; 82150; 82248; 82948; 83690; 85027; 85055; 85610; 85730; 86850; 86900; 86901; 88304; 93005; A9270; J0690; J1100; J1815; J1885; J2405; J2704; J2710; J3010; J7030; J7120

== ENCOUNTER 2022-06-04 12:23 | Outpatient (CLI) | payer OTHER, SELFPAY ==
--- NOTE | ~2022-06-04 | US_ITS ---
EXAMINATION: US venous doppler [facility] DATE: 06/04/2022 13:22 INDICATION: Left lower limb pain. TECHNIQUE: Grayscale ultrasound images without and with compression and Doppler ultrasound images of the left lower extremity veins were obtained. COMPARISON: None. FINDINGS: The visualized portions of left common femoral vein, profunda (deep) femoral vein, femoral vein, popl iteal vein, peroneal veins, posterior tibial veins, gastrocnemius vein, lesser saphenous vein and gre ater saphenous vein outflow are patent. IMPRESSION: 1. No deep venous thrombosis in the left lower limb. Reviewed, dictated and finalized at location A.
--- NOTE | ~2022-06-04 | US_ITS ---
EXAMINATION: US abdomen complete DATE: 06/04/2022 13:05 INDICATION: Right upper quadrant pain TECHNIQUE: Multiple grayscale and Doppler ultrasound images of the abdomen were obtained. COMPARISON: 02/07/2022 FINDINGS: Bowel gas obscures visualization of the pancreas. The visualized portions of the pancreas a re unremarkable. There is nodularity of the liver surface. The liver demonstrates mottled echotexture . There is flow in the hepatic artery. No portal venous flow is identified. The gallbladder is surgic ally absent. The normal common bile duct measures 4 mm. The visualized portions of the aorta and infe rior vena cava are normal. The right kidney measures 12.6 x 6.0 x 5.4 cm. The left kidney measures 14.7 x 5.1 x 5.4 cm. The kidn eys demonstrate normal parenchymal echogenicity. There is no hydronephrosis. The enlarged spleen emiliano ures 18 cm. IMPRESSION: 1. Cirrhosis with portal hypertension and no detectable flow in the portal vein. Reviewed, dictated and finalized at location B. IMPRESSION: 1. Cirrhosis with portal hypertension and no detectable flow in the portal vein .
--- NOTE | ~2022-06-04 | US_ITS ---
US arterial ankle brachial ind INDICATION: Unspecified mononeuropathy of the lower extremities TECHNIQUE: Segmental pressures and plethysmographic and Doppler waveforms of the brachial and lower e xtremity arteries were obtained. COMPARISON: None. FINDINGS: Right and left brachial artery pressures of 167 mm Hg and 154 mm Hg, respectively, are concordant (no rmal difference <= 30 mmHg). The right ankle-brachial index (BIRD) is 1.23 (normal >= 0.9-1.0). The right great toe-brachial index (TBI) is above 0.6 (normal >= 0.60). The toes cannot be excluded, both measuring greater than 150 mmH g. The left BIRD is 1.23. The left TBI is above 0.6. IMPRESSION: 1. Normal bilateral ankle-brachial indices. Reviewed, dictated and finalized at location A.
== END 2022-06-04 12:24 | disposition home or self-care (01) ==
LOC: CHSIMG 12:24
PROVIDERS: PCP Nurse Practitioner Family; Visit Provider Nurse Practitioner Family
DX: R10.11 Right upper quadrant pain (principal); R09.89 Other specified symptoms and signs involving the circulatory and respiratory systems; G57.92 Unspecified mononeuropathy of left lower limb; K70.30 Alcoholic cirrhosis of liver without ascites; I50.9 Heart failure, unspecified; E11.9 Type 2 diabetes mellitus without complications; G62.9 Polyneuropathy, unspecified
CPT/HCPCS: 76700; 93922; 93971

== ENCOUNTER 2022-08-26 15:55 | Outpatient (CLI) | payer OTHER, SELFPAY ==
[2022-08-26 16:14] LABS: Hematocrit 39.7 % (40.0-54.0); Hemoglobin 13.2 g/dL (14.0-18.0); Immature Platelet Fraction Pct 8.5 % (1.0-7.0); Mean Corpuscular HGB Conc 33.2 g/dL (32.0-36.0); Mean Corpuscular Hemoglobin 32.2 pg (27.0-31.0); Mean Corpuscular Volume 96.8 fL (78.0-102.0); Mean Platelet Volume 11.9 fl (8.7-11.0); Platelet Count Result 58 K/mm3 (150-420); Red Cell Distribution Width 14.9 % (11.6-14.4); White Blood Count 4.2 K/mm3 (4.8-10.8)
[2022-08-26 16:25] LABS: INR 1.3; Prothrombin Time 13.6 Seconds (9.50-12.10)
[2022-08-26 16:34] LABS: Alanine Aminotransferase 45 U/L (16-63); Albumin Level 3.3 g/dL (3.4-5.0); Alkaline Phosphatase 238 U/L (46-116); Anion Gap 11 mmol/L (8-16); Aspartate Amino Transferase 107 U/L (15-37); Bilirubin Direct 1.5 mg/dL (0-0.2); Blood Urea Nitrogen 6 mg/dL (7-18); Calcium 8.7 mg/dL (8.5-10.1); Carbon Dioxide 26 mmol/L (21-32); Chloride 100 mmol/L (98-108); Estimated Glomerular Filt Rate > 60; Glucose 151 mg/dL (70-99); Osmolality Calculated 284 mOsm/kg (285-295); Potassium 3.8 mmol/L (3.5-5.1); Sodium 137 mmol/L (136-145); Total Protein 8.4 g/dL (6.4-8.2)
[2022-08-26 17:21] LABS: Total Cells Counted 100
[2022-08-26 17:22] LABS: Band Neutrophils Percent 0 % (0-6); Basophils Absolute Manual 0.08 K/mm3 (0-0.1); Basophils Percent Manual 2 % (0-1); Eosinophils Absolute Manual 0.04 K/mm3 (0.02-0.5); Eosinophils Percent Manual 1 % (1-6); Lymphocytes Absolute Manual 1.63 K/mm3 (1.1-4.5); Lymphocytes Percent Manual 39 % (18-44); Monocytes Absolute Manual 0.75 K/mm3 (0.1-0.90); Monocytes Percent Manual 18 % (3-9); Neutrophils Absolute Manual 1.68 K/mm3 (1.3-6.7); Neutrophils Percent Manual 40 % (46-73)
[2022-08-26 17:31] LABS: Platelet Estimate Decreased (Adequate)
[2022-09-01 16:43] LABS: Alpha Fetoprotein Tumor Marker 5.5 ng/mL (<6.1)
== END 2022-08-26 15:56 | disposition home or self-care (01) ==
LOC: CHSLAB 15:57
PROVIDERS: PCP Nurse Practitioner Family; Visit Provider Nurse Practitioner
DX: K76.6 Portal hypertension (principal); K70.30 Alcoholic cirrhosis of liver without ascites
CPT/HCPCS: 36415; 80048; 80076; 82105; 85025; 85055; 85610

== ENCOUNTER 2023-04-27 15:33 | Inpatient (IN) | payer OTHER, SELFPAY ==
[2023-04-27] VITALS (10 sets, daily range): BP systolic 97–125; BP diastolic 48–75; PULSE 88–101; RESP 13–18; TEMP 36.2–36.6; O2SAT 95–99; BMI 34.8
--- NOTE | ~2023-04-27 | XR_ITS ---
Portable chest x-ray Comparison: 04/27/2023 Clinical History: Line placement Findings: Right-sided IJ central venous line is in satisfactory position. Small right pleural effusi on is present. There is mild pulmonary edema and probable mild bibasilar atelectasis. Cardiomediasti nal silhouette is stable. Bones and soft tissues are unremarkable. Impression: Support line, as above. Mild bibasilar pulmonary edema/atelectasis with small right pleural effusion. No pneumothorax. Reviewed, dictated and finalized at location M. Impression: Support line, as above. Mild bibasilar pulmonary edema/atelectasis with small right pleural effusion. No pneumothorax.
--- NOTE | ~2023-04-27 | US_ITS ---
US renal BI 04/28/2023 15:44 Procedure: Realtime transabdominal ultrasound of the kidneys and bladder. Indication: Elevated creatinine Comparison: CT dated 04/27/2023 Findings: Renal echotexture is normal bilaterally without hydronephrosis, contour deforming mass or r enal calculus. The right kidney measures 13.9 cm and left kidney measures 15 cm. Bladder within norm al limits. There is a small amount of ascites in the upper abdomen. Impression: 1: Unremarkable renal ultrasound. No stones, masses or hydronephrosis. 2: Small volume of ascites in the upper abdomen. Reviewed, dictated and finalized at location L. Impression: 1: Unremarkable renal ultrasound. No stones, masses or hydronephrosis. 2: Small volume of ascites in the upper abdomen.
--- NOTE | ~2023-04-27 | XR_ITS ---
EXAMINATION: XR chest 2V Exam Date/Time: 04/27/2023 21:23 CDT HISTORY: cirrhosis w/ ascites, r/o pulm edema Comparison: 01/04/2019; CT abdomen and pelvis, 04/27/2023. RESULT: Lines, tubes, and devices: None. Lungs and pleura: Linear opacities in the right lung base, likely atelectasis/scar. Small focus of a telectasis in the left lateral costophrenic angle. Cardiomediastinal silhouette: Stable. Other: No acute osseous or upper abdominal finding. IMPRESSION: No acute cardiopulmonary process. Reviewed, dictated and finalized at location K.
--- NOTE | ~2023-04-27 | US_ITS ---
EXAMINATION: US paracentesis abd w/image DATE: 04/28/2023 15:30 INDICATION: Ascites. TECHNIQUE: The procedure and its risks and benefits were discussed with the patient. Potential risks discussed included bleeding and infection. The skin was prepped and draped in sterile fashion. 1% lid ocaine was used for local anesthesia. Under ultrasound guidance, a 5 Fr catheter with trochar was adv anced into the ascites in the left lower quadrant. Fluid was aspirated into vacuum bottles. The maria esther ter was removed, and a dressing was applied. There were no immediate complications. FINDINGS: Ultrasound images demonstrate ascites and the catheter within the fluid. IMPRESSION: 1. Successful ultrasound-guided paracentesis yielding 2400 mL of cloudy dark yellow fluid. Reviewed, dictated and finalized at location A. IMPRESSION: 1. Successful ultrasound-guided paracentesis yielding 2400 mL of cloudy dark y ellow fluid.
--- NOTE | ~2023-04-27 | CT_ITS ---
EXAMINATION: CT abdomen pelvis wo con DATE: 04/27/2023 17:39 INDICATION: lower/RUQ pain, bloating, jaundice TECHNIQUE: Computed tomography (CT) of the abdomen and pelvis was performed without intravenous contr ast. Automated exposure control and iterative reconstruction technique were employed. The dose-length product was 1533.10 mGy-cm. COMPARISON: 01/13/2022. FINDINGS: Lower thorax: Bibasilar scar/atelectasis. Liver: Hepatomegaly. Severe coarsening/heterogeneity of the liver parenchymal density. Nodular liver border. No discrete liver masses are identified in this determination is significantly limited withou t contrast. Biliary/Gallbladder: Gallbladder is absent. No bile duct dilation. Pancreas: No mass or duct dilation. Spleen: Enlarged. Adrenals:No mass. Kidneys: No mass, stone, or hydronephrosis. Ill-defined hyperdensity of the renal pyramids as can be seen with medullary nephrocalcinosis. GI tract: No small or large bowel dilation. Normal appendix. Diverticulosis without diverticulitis. Mesentery/Peritoneum: No mass or free air. Moderate volume free fluid. Retroperitoneum: No mass. Atherosclerotic abdominal aortic and/or arterial calcifications. Upper abdo christina varices. Pelvis: Pelvic organs are within normal limits. Soft Tissues: Soft tissues and body wall unremarkable. Bones: No acute osseous finding. IMPRESSION: Cirrhosis with portal hypertension. Heterogeneous liver parenchyma may be secondary to cirrhotic thomas ges, although edema from hepatitis or ascending cholangitis could appear similarly and both should re main in the differential. Moderate ascites. Reviewed, dictated and finalized at location K. IMPRESSION: Cirrhosis with portal hypertension. Heterogeneous liver parenchyma may be secon jenna to cirrhotic changes, although edema from hepatitis or ascending cholangit is could appear similarly and both should remain in the differential. Moderate ascites.
--- NOTE | 2023-04-27 15:42 | ECG_ITS ---
Measurements Intervals [place] Rate: 99 P: 64 AR: 196 QRS: -7 QRSD: 126 T: 20 QT: 373 QTc: 479 Interpretive Statements SINUS RHYTHM NONSPECIFIC INTRAVENTRICULAR CONDUCTION DELAY BORDERLINE ECG COMPARED TO ECG 03/26/2022 09:39:06 LONGER DURATION QRS Electronically Signed On 04-27-2023 16:13:01 CDT by Rishi Damico M.D.
[2023-04-27 16:35] LABS: Basophils Percent Auto 0.2 % (0.2-1.2); Eosinophils Absolute Auto 0.1 K/mm3 (0-0.3); Eosinophils Percent Auto 0.7 % (0-4.4); Hematocrit 29.3 % (42.0-52.0); Hemoglobin 10.9 g/dL (14.0-18.0); Immature Granulocyte Absolute 0.08 K/mm3 (0.00-0.031); Immature Granulocyte Percent A 0.8 % (0-0.5); Immature Platelet Fraction Pct 6.6 % (0.9-11.2); Lymphocytes Absolute Auto 0.92 K/mm3 (0.9-3.2); Lymphocytes Percent Auto 8.9 % (18.3-44.2); Mean Corpuscular HGB Conc 37.2 g/dl (32-36); Mean Corpuscular Hemoglobin 31.7 pg (26-34); Mean Corpuscular Volume 85.2 fl (80-100); Mean Platelet Volume 11.3 fl (7.4-10.4); Monocytes Percent Auto 9.3 % (2.6-8.5); Neutrophils Absolute Auto 8.3 K/mm3 (1.3-6.7); Neutrophils Percent Auto 80.1 % (45.5-73.1); Nucleated Red Blood Cells Absolute Auto 0.2 K/mm3 (0.0-0.012); Platelet Count Result 115 k/mm3 (150-375); Red Blood Count 3.44 M/mm3 (4.6-6.20); Red Cell Distribution Width 22.8 % (11.5-14.5); White Blood Count 10.4 K/mm3 (4.5-10.0)
[2023-04-27 16:45] LABS: INR 1.8; Prothrombin Time 21.8 Seconds (11.1-14.7)
[2023-04-27 16:47] LABS: Partial Thromboplastin Time 53.8 SECONDS (22.3-36.8)
[2023-04-27 16:59] LABS: Anisocytosis 3+ (NORMAL); Platelet Estimate Decreased (Adequate); Schistocytes None Seen (NORMAL)
--- NOTE | 2023-04-27 17:10 | ED.GIBLEED ---
HPI - GI Bleed General Chief complaint: GI Bleed <SAGE Kenadll Last Filed: 04/28/23 02:53> Stated complaint: vomiting blood, weak, jaundiced <SAGE Kendall Last Filed: 04/28/23 02:53> Time Seen by Provider: 04/27/23 16:50 <SAGE Kendall Last Filed: 04/28/23 02:53> Source: patient and old records reviewed <SAGE Kendall Last Filed: 04/28/23 02:53> Mode of arrival: EMS <SAGE Kendall Last Filed: 04/28/23 02:53> Limitations: no limitations <SAGE Kendall Last Filed: 04/28/23 02:53> History of Present Illness HPI Narrative: Patient is 53 y/o male with PMH of alcoholic liver cirrhosis, former alcoholism, portal hypertension, CHF, DM, esophageal varices, who presents to the ED via EMS with multiple complaints. Patient reports having several weeks of nausea, vomiting, diarrhea, abdominal pain and bloating. He complains of pain across his lower abdomen and in his right upper quadrant. He reports having profuse vomiting throughout the day, unable to keep anything down. He reports having bright red rectal bleed and dark black stools for several weeks. He has also noticed a yellow tent to his skin for the last several weeks, in addition to fatigue, weakness, frequent falls, shortness of breath, difficulty urinating. He sees a fit model at [facility], Dr. Byrd, and last saw him 2 months ago, at which point he said he had no complaints. He states he was told his portal vein was blocked off when he last saw his fit model. Patient denies any fevers, chest pain. <SAGE Kendall Last Filed: 04/28/23 02:53> Related Data Home medications: Home Medications Medication Instructions Recorded Confirmed liraglutide 0.6 mg/0.1 mL (18 mg/3 1.2 mg subcut DAILY 06/06/22 04/27/23 mL) subcutaneous pen injector (Victoza 2-Jayson) cyclobenzaprine 10 mg tablet 10 mg PO BID 04/27/23 04/27/23 dapagliflozin propanediol 10 mg 10 mg PO DAILY 04/27/23 04/27/23 tablet (Farxiga) omeprazole 40 mg capsule,delayed 40 mg PO DAILY 04/27/23 04/27/23 release propranolol 10 mg tablet 10 mg PO TID 04/27/23 04/27/23 <Heather Staley PA-C - Last Filed: 04/28/23 02:53> Allergies/Adverse reactions: Allergies Allergy/AdvReac Type Severity Reaction Status Date / Time iohexol Allergy Severe Difficulty Verified 04/29/23 12:41 [From contrast - CT, X-RAY] Breathing <SAGE Kendall Last Filed: 04/28/23 02:53> Review of Systems Review of Systems: CONSTITUTIONAL: Reports fatigue, weakness. Denies fever, chills, or sweats. CARDIOVASCULAR: Denies chest pain. RESPIRATORY: See HPI. GASTROINTESTINAL: See HPI. GENITOURINARY: See HPI. SKIN: See HPI. MUSCULOSKELETAL: Denies back pain, joint pain, or myalgia. <SAGE Kendall Last Filed: 04/28/23 02:53> All systems reviewed & are unremarkable except as noted in HPI and below <SAGE Kendall Last Filed: 04/28/23 02:53> FORMERLY [facility] Past Medical History Medical History: Medical History Acute alcoholic hepatitis 2017 Adenomatous colon polyp Alcohol abuse Alcoholic Alcoholic cirrhosis Anemia CHF (congestive heart failure) EF 55-60% 2017 DM2 (diabetes mellitus, type 2) Esophageal varices ANURAG (generalized anxiety disorder) Gallbladder sludge GERD (gastroesophageal reflux disease) GI bleed 2017 Hepatic encephalopathy History of depression History of stomach ulcers Hx of hyperlipidemia Hypertension Iron deficiency anemia Left leg pain Liver encephalopathy Lower respiratory infection (e.g., bronchitis, pneumonia, pneumonitis, pulmonitis) Melena Nicotine dependence Nicotine dependence Obesity Other chronic pain Overweight Pain in left lower leg Peptic ulcer disease Portal vein obstruction Restless leg syndrome Scleral icterus Shortness
[2023-04-27 17:25] LABS: Alanine Aminotransferase 156 U/L (6-50); Albumin Level 3.3 g/dL (3.5-5.1); Alkaline Phosphatase 228 U/L (38-126); Anion Gap 17 mmol/L (8-16); Aspartate Amino Transferase 424 U/L (17-59); Blood Urea Nitrogen 120 mg/dL (9-20); Calcium 8.4 mg/dL (8.4-10.2); Carbon Dioxide 18 mmol/L (22-30); Chloride 86 mmol/L (98-107); Estimated CRCL calculation 13 ml/min; Estimated Glomerular Filt Rate 8; Glucose 125 mg/dL (65-110); Potassium 5.7 mmol/L (3.4-5.0); Sodium 121 mmol/L (137-145)
[2023-04-27 17:40] LABS: Lipase 1227 U/L (23-300)
[2023-04-27 17:51] LABS: NT Pro B Type Natriuretic Pept 492 pg/mL (19.9-100)
[2023-04-27] MEDS: INSULIN HUMAN REGULAR (*BKC) 100 UNITS/ML 10 UNITS IV PUSH (18:05)
[2023-04-27] MEDS: CALCIUM GLUCONATE 1,000 MG/10 ML VIAL 1000 MG IV PUSH (18:05)
[2023-04-27] MEDS: DEXTROSE 50% 25 GM/50 ML SYRINGE IV PUSH (18:05)
[2023-04-27] MEDS: SODIUM ZIRCONIUM CYCLOSILICATE 10 GM POWD.PACK PO (18:18)
[2023-04-27 19:48] LABS: Ethanol < 10 mg/dL (<10)
[2023-04-27 20:05] LABS: Hepatitis B Surface Antigen Negative (Negative)
[2023-04-27 20:10] LABS: HAV RESULT Negative (Negative); Hepatitis B Core IgM Result Negative (Negative)
--- NOTE | 2023-04-27 20:17 | PM.IMHP ---
H&P: HPI History of Present Illness Date/Time: 04/27/23 20:17 Chief Complaint: AMS Narrative: This is a 53 yo male with PMHx significant for Hepatic Cirrhosis. ETOH dependence, insulin dependent T2DM,patient presents to ED due to jaundice, AMS, poor per oral intake, n/v for the last 2 months, patient is able to give some history however very limited due to obtundation, lethargy, deliroum, states that has not eaten anything in the last 2 months, last time he had an alcoholic drink was 2 months ago, noted to have jaundice for the last several weeks. Has had melena and BRBPR as well. Preliminary work up was significant for hemoglobin of 10 hematocrit is 29 platelet is 115, 000, sodium is 126, chloride is 86, bicarb is 18, cr is 7.6, BUN is 86, lactic acid is 3.4 total bili is 34, potassium 5.7 anion gag 17 PT 21 PTT 53 . Patient is currently awaiting bed at tertiary care facility at [facility] EXAMINATION: CT abdomen pelvis wo con DATE: 04/27/2023 17:39 INDICATION: lower/RUQ pain, bloating, jaundice TECHNIQUE: Computed tomography (CT) of the abdomen and pelvis was performed without intravenous contrast. Automated exposure control and iterative reconstruction technique were employed. The dose-length product was 1533.10 mGy-cm. COMPARISON: 01/13/2022. FINDINGS: Lower thorax: Bibasilar scar/atelectasis. Liver: Hepatomegaly. Severe coarsening/heterogeneity of the liver parenchymal density. Nodular liver border. No discrete liver masses are identified in this determination is significantly limited without contrast.? Biliary/Gallbladder: Gallbladder is absent. No bile duct dilation. Pancreas: No mass or duct dilation. Spleen: Enlarged. Adrenals:No mass. Kidneys: No mass, stone, or hydronephrosis. Ill-defined hyperdensity of the renal pyramids as can be seen with medullary nephrocalcinosis. GI tract: No small or large bowel dilation. Normal appendix. Diverticulosis without diverticulitis. Mesentery/Peritoneum: No mass or free air. Moderate volume free fluid. Retroperitoneum: No mass. Atherosclerotic abdominal aortic and/or arterial calcifications. Upper abdominal varices. Pelvis: Pelvic organs are within normal limits. Soft Tissues: Soft tissues and body wall unremarkable. Bones:? No acute osseous finding. IMPRESSION: Cirrhosis with portal hypertension. Heterogeneous liver parenchyma may be secondary to cirrhotic changes, although edema from hepatitis or ascending cholangitis could appear similarly and both should remain in the differential. Moderate ascites. EXAMINATION:? XR chest 2V Exam Date/Time:? 04/27/2023 21:23 CDT HISTORY: cirrhosis w/ ascites, r/o pulm edema ? Comparison:? 01/04/2019; CT abdomen and pelvis, 04/27/2023. RESULT: Lines, tubes, and devices:? None. Lungs and pleura:? Linear opacities in the right lung base, likely atelectasis/scar. Small focus of atelectasis in the left lateral costophrenic angle. Cardiomediastinal silhouette:? Stable. Other:? No acute osseous or upper abdominal finding. ? IMPRESSION: No acute cardiopulmonary process. Review of Systems Review of Systems: n/v/melena, jaundice. ROS unobtainable: Yes unobtainable due to mental status (lethargy, delirium, obtundation, encephalopathy) PMFSH Past Medical History Medical History Acute alcoholic hepatitis 2017 Adenomatous colon polyp Alcohol abuse Alcoholic Alcoholic cirrhosis Anemia CHF (congestive heart failure) EF 55-60% 2017 DM2 (diabetes mellitus, type 2) Esophageal varices ANURAG (generalized anxiety disorder) Gallbladder sludge GERD (gastroesophageal reflux disease) GI bleed 2017 Hepatic encephalopathy History of depression History of stomach ulcers Hx of hyperlipidemia Hypertension Iron deficiency anemia Left leg pain Liver encephalopathy Lower respiratory infection (e.g., bronchitis, pneumonia, pneumonitis, pulmonitis) Melena Nicotine dependence
[2023-04-27 20:21] LABS: Hepatitis C Virus Antibody Negative (Negative)
[2023-04-27] MEDS: PANTOPRAZOLE SODIUM IV 40 MG VIAL IV PUSH (20:35)
[2023-04-27 21:02] LABS: Glucose Point of Care 113 mg/dl (65-105)
--- NOTE | 2023-04-27 21:05 | PC.NURSE ---
unable to obtain blood culture after multiple attempts. Heather ALANIS aware.
[2023-04-27] MEDS: ALBUMIN HUMAN 25% 25 GM/100 ML 100 ML IVPB ×2 (21:38→23:30)
--- NOTE | 2023-04-27 22:28 | ADMGEN ---
This patient, Julio Cesar Osman Jr., was admitted to Intensive Care Unit-7. Patient/family oriented to hospital policies and general routines including ID bracelet, bed and alarms, visiting hours, pain management, procedures, bathroom and other care routines, personal items, smoking policy, room service/diet, and visiting hours. Information on how to activate the Rapid Response Team has been discussed. Patient/Family are encouraged to report perceived risks to care and to ask questions if they do not understand what they are told or what they should do.
[2023-04-27 23:28] LABS: Ammonia 29 umol/L (9-30); Magnesium 2.2 mg/dL (1.6-2.3)
[2023-04-27 23:44] LABS: Lactic Acid Reflex 3.4 mmol/L (0.7-2.0)
[2023-04-28] VITALS (15 sets, daily range): BP systolic 110–151; BP diastolic 54–97; PULSE 91–103; RESP 10–18; TEMP 35.6–36.6; O2SAT 88–97
[2023-04-28] MEDS: HYDROmorphone HCL INJ (*CRX) 1 MG/ML SYR 3 MG IV PUSH (00:09)
[2023-04-28] MEDS: SODIUM CHLORIDE 0.9% IV 1,000 ML 999 ML IV CONT ×2 (00:30→02:15)
[2023-04-28 00:48] LABS: Creatinine Urine 222.2 mg/dL
[2023-04-28 00:50] LABS: Sodium Urine Random 13 meq/L
[2023-04-28 00:52] LABS: Need Manual Microscopic Reviewed; Non Pathogenic Casts 0-2; Squamous Epithelial Cell Urine Few /hpf (Few); WBC Urine 0-5 /hpf
[2023-04-28 00:58] LABS: Appearance Urine Slightly Cloudy (Clear); Bilirubin Urine 3+ (Negative); Blood Urine 2+ (Negative); Color Urine Brown (Yellow); Glucose Urine UA Trace mg/dL (Negative); Ketones Urine 1+ mg/dL (Negative); Leukocyte Esterase Ur 3+ LEU/UL (Negative); Nitrate Urine Negative (Negative); Protein Urine 2+ mg/dL (Negative)
[2023-04-28 01:01] LABS: Bacteria Urine 3+ /hpf
[2023-04-28 01:03] LABS: Add Urine Microscopic? YES
[2023-04-28] MEDS: PIPERACILLIN/TAZOBACTAM SOD 4.5 GM in SODIUM CHLORIDE 0.9% IV 100 ML 200 ML IVPB (02:14)
[2023-04-28 02:26] LABS: Reflex Lactic Acid Yes or No Add Lactic
[2023-04-28 03:17] LABS: Lactic Acid 2.1 mmol/L (0.7-2.0)
[2023-04-28 04:00] LABS: Ammonia 62 umol/L (9-30)
[2023-04-28 04:00] LABS: Hematocrit 26.5 % (42.0-52.0); Hemoglobin 9.5 g/dL (14.0-18.0); Mean Corpuscular HGB Conc 35.8 g/dl (32-36); Mean Corpuscular Hemoglobin 31.5 pg (26-34); Mean Corpuscular Volume 87.7 fl (80-100); Mean Platelet Volume 11.2 fl (7.4-10.4); Platelet Count Result 101 k/mm3 (150-375); Red Blood Count 3.02 M/mm3 (4.6-6.20); Red Cell Distribution Width 23.3 % (11.5-14.5); White Blood Count 10.4 K/mm3 (4.5-10.0)
[2023-04-28 04:32] LABS: Alanine Aminotransferase 131 U/L (6-50); Albumin Level 3.1 g/dL (3.5-5.1); Alkaline Phosphatase 194 U/L (38-126); Anion Gap 17 mmol/L (8-16); Aspartate Amino Transferase 327 U/L (17-59); Bilirubin,Total 34.9 mg/dL (0.2-1.3); Calcium 8.1 mg/dL (8.4-10.2); Carbon Dioxide 18 mmol/L (22-30); Chloride 89 mmol/L (98-107); Estimated CRCL calculation 12 ml/min; Estimated Glomerular Filt Rate 7; Glucose 118 mg/dL (65-110); Phosphorus 7.6 mg/dL (2.5-4.5); Potassium 4.8 mmol/L (3.4-5.0); Sodium 124 mmol/L (137-145)
[2023-04-28 04:53] LABS: Blood Urea Nitrogen 122 mg/dL (9-20)
[2023-04-28] MEDS: ALBUMIN HUMAN 25% 25 GM/100 ML 100 ML IVPB ×4 (06:09→23:49)
[2023-04-28] MEDS: HYDROCORTISONE SODIUM SUCCINATE 100 MG/2 ML VIAL IV PUSH ×3 (06:09→21:45)
[2023-04-28] MEDS: SODIUM CHLORIDE 0.9% IV 1,000 ML 75 ML IV CONT ×2 (06:10→17:33)
--- NOTE | 2023-04-28 07:39 | WPDGICN ---
Assessment and Plan Assessment and plan (1) Hyperbilirubinemia: Code(s): E80.6 - Other disorders of bilirubin metabolism Status: Acute Assessment and Plan: His bilirubin is up to 34 now. (2) Alcoholic cirrhosis of liver with ascites: Code(s): K70.31 - Alcoholic cirrhosis of liver with ascites Status: Acute Assessment and Plan: He clearly has end-stage liver disease and now is probably in hepatorenal syndrome. His supervisor [employer] was contacted and he has been accepted and is awaiting a bed in [facility]. (3) GIB (gastrointestinal bleeding): Qualifiers: GI bleed type/associated pathology: unspecified gastrointestinal hemorrhage type Qualified Code(s): K92.2 - Gastrointestinal hemorrhage, unspecified Code(s): K92.2 - Gastrointestinal hemorrhage, unspecified Status: Acute Assessment and Plan: He has not shown any overt evidence of bleeding since admission. His hemoglobin however has dropped from 10.9 to 9.5. Last year his hemoglobin was 13. The emergency room physician stated that he had had some coffee-ground emesis before admission. (4) Elevated lipase: Code(s): R74.8 - Abnormal levels of other serum enzymes Status: Acute Assessment and Plan: Likely pancreatitis due to continued alcohol use. (5) Hyponatremia: Code(s): E87.1 - Hypo-osmolality and hyponatremia Status: Acute Assessment and Plan: Potassium was low not atypical for cirrhosis. It has been shown that is not necessary to rapidly increase the sodium in cirrhotic stop as it could lead to seizures if increased rapidly and morbidity mortality do not seem to be influenced by the sodium level itself. (6) Acute renal failure: Qualifiers: Acute renal failure type: unspecified Qualified Code(s): N17.9 - Acute kidney failure, unspecified Code(s): N17.9 - Acute kidney failure, unspecified Status: Acute Assessment and Plan: Creatinine which was normal last fall is 7.4 yesterday and now up to 8.1 this morning. This may represent hepatorenal syndrome. Nephrology has been consulted GI Consult Note Consult date/time: 04/28/23 07:39 HPI: Julio Cesar Osman Jr. is a 53 year old male with advanced liver disease known to have chronic alcohol dependence. He is followed by hepatology at [facility]. He present to the emergency room stating that he has not been able to eat anything for the past 2 months, he is weak in fact he became increasingly of tended for which reason he was admitted to ICU. He gave history of having had bright red blood per rectum and also black tarry stools. His hemoglobin was 10 with a hematocrit of 29. Also creatinine is up to 7.6 where as it was normal last year at 0.6. This morning the creatinine is actually higher at 8.1 He is awake and can answer yes and no. He denies having abdominal pain but when I palpated him he this blade discomfort. Review of Systems Review of Systems: All systems reviewed & are unremarkable except as noted in HPI and below PMFSH Past Medical History Medical History Acute alcoholic hepatitis 2017 Adenomatous colon polyp Alcohol abuse Alcoholic Alcoholic cirrhosis Anemia CHF (congestive heart failure) EF 55-60% 2017 DM2 (diabetes mellitus, type 2) Esophageal varices NAURAG (generalized anxiety disorder) Gallbladder sludge GERD (gastroesophageal reflux disease) GI bleed 2017 Hepatic encephalopathy History of depression History of stomach ulcers Hx of hyperlipidemia Hypertension Iron deficiency anemia Left leg pain Liver encephalopathy Lower respiratory infection (e.g., bronchitis, pneumonia, pneumonitis, pulmonitis) Melena Nicotine dependence Nicotine dependence Obesity Other chronic pain Overweight Pain in left lower leg Peptic ulcer disease Portal vein obstruction Restless leg syndrome Scle
--- NOTE | 2023-04-28 08:32 | WPDCNINT ---
Assessment and Plan Assessment and plan (1) Sepsis: Code(s): A41.9 - Sepsis, unspecified organism Status: Acute Assessment and Plan: Secondary to SBP versus UTI Start meropenem Urine and blood culture ordered Blood pressure adequate at this time and patient not requiring vasopressors Continue IV fluids Paracenteses with studies for ascites fluid ordered and pending (2) GIB (gastrointestinal bleeding): Qualifiers: GI bleed type/associated pathology: unspecified gastrointestinal hemorrhage type Qualified Code(s): K92.2 - Gastrointestinal hemorrhage, unspecified Code(s): K92.2 - Gastrointestinal hemorrhage, unspecified Status: Acute Assessment and Plan: Varices or peptic ulcer disease Monitor hemoglobin IV PPI q.12 hours Vitamin K IM NPO Monitor hemoglobin Octreotide infusion Patient was evaluated by GI (3) Alcoholic cirrhosis of liver with ascites: Code(s): K70.31 - Alcoholic cirrhosis of liver with ascites Status: Acute Assessment and Plan: Patient has chronic cirrhosis secondary to alcoholic liver disease and is normally followed at [facility] He has resumed drinking alcohol after of his and now presents with elevated liver enzymes, ammonia, INR, ascites and abdominal pain His discriminant function is 67.6 and he is on hydrocortisone Vitamin K for coagulopathy Treatment of GI bleed as above Lactulose for hepatic encephalopathy Monitor INR liver enzymes ammonia (4) Acute renal failure: Qualifiers: Acute renal failure type: unspecified Qualified Code(s): N17.9 - Acute kidney failure, unspecified Code(s): N17.9 - Acute kidney failure, unspecified Status: Acute Assessment and Plan: Acute renal failure likely secondary to prerenal etiology like dehydration hypotension and sepsis which may have progress to ATN. Patient also has possibility of hepatorenal syndrome Discussed with Dr. Solorzano from Nephrology. Continue IV fluids. Patient's mean arterial pressure is adequate at this time Continue albumin CT scan did not show any hydronephrosis or obstruction Check urine electrolytes and CK level Monitor urine output electrolytes and creatinine Patient may need renal replacement therapy if renal function does not improve (5) Coagulopathy: Code(s): D68.9 - Coagulation defect, unspecified Status: Acute Assessment and Plan: Secondary to liver dysfunction Vitamin K 10 mg IM x1 Will give FFP patient shows evidence of active bleeding (6) Hyponatremia: Code(s): E87.1 - Hypo-osmolality and hyponatremia Status: Acute Assessment and Plan: Chronic secondary to cirrhosis Continue gentle hydration Monitor sodium level (7) Hyperbilirubinemia: Code(s): E80.6 - Other disorders of bilirubin metabolism Status: Acute Assessment and Plan: See above (8) Alcoholic hepatitis: Code(s): K70.10 - Alcoholic hepatitis without ascites Status: Acute Assessment and Plan: See above (9) Esophageal varices: Code(s): I85.00 - Esophageal varices without bleeding Status: Acute Assessment and Plan: See above (10) Hepatic encephalopathy: Code(s): K76.82 - Hepatic encephalopathy Status: Acute Assessment and Plan: See above (11) Abdominal pain: Code(s): R10.9 - Unspecified abdominal pain Status: Acute Assessment and Plan: Secondary to pancreatitis and possible SBP (12) Pancreatitis: Code(s): K85.90 - Acute pancreatitis without necrosis or infection, unspecified Status: Acute Assessment and Plan: Elevated lipase along with epigastric abdominal pain suggest alcohol induced pancreatitis CT scan reviewed And p.o. IV fluids pain control (13) DM2 (diabetes mellitus, type 2): Code(s): E11.9 - Type 2 diabetes mellitus without complications Status: Acute A
[2023-04-28] MEDS: PHYTONADIONE INJ 10 MG/ML AMP IM (09:20)
[2023-04-28] MEDS: OCTREOTIDE ACETATE 50 MCG/ML VIAL IV PUSH (09:21)
[2023-04-28] MEDS: MEROPENEM 500 MG in SODIUM CHLORIDE 0.9% IV 100 ML 200 ML IVPB ×2 (09:21→21:44)
[2023-04-28] MEDS: LACTULOSE 20 GM/30 ML UDC PO ×2 (09:21→17:20)
[2023-04-28] MEDS: rifAXIMin 550 MG TABLET PO ×2 (09:22→21:45)
[2023-04-28 10:14] LABS: Creatine Kinase 42 U/L (55-170)
[2023-04-28 11:27] LABS: Creatinine Urine 156.7 mg/dL
[2023-04-28 11:32] LABS: Sodium Urine Random 17 meq/L
--- NOTE | 2023-04-28 11:39 | PM.CNNEP ---
Assessment and Plan Assessment and plan (1) Acute kidney injury: Code(s): N17.9 - Acute kidney failure, unspecified Status: Acute Assessment and Plan: The patient has acute kidney injury. His creatinine in August of last year was 0.91. He does not think that any of the doctors mentioned that he had any kidney problems after that. The patient has had nausea vomiting and diarrhea for at least a week or 2 and so probably has intravascular volume depletion. In addition has severe cirrhosis with its attendant underfilling and chronic pre renal azotemia. So he has at least pre renal azotemia. The patient could have hepatorenal syndrome. Urine output is very low. However we can't make this diagnosis with his dehydration so we should hydrate him and see how he does. will also check a urine sodium. He is getting IV fluids plus albumin. If it does not start responding soon and his urine sodium is low, then consider norepinephrine and octreotide to treat hepatorenal syndrome he could also have ATN. Obstruction is always a possibility. Rhabdomyolysis is also a possibility. Glomerulonephritis interstitial nephritis would be unlikely in this clinical scenario. Will check urine electrolytes, renal ultrasound, CPK. The patient has a metabolic acidosis. His anion gap is 17. His albumin is surprisingly well conserved but still that anion gap is probably higher than his baseline. His anion gap back in August was only 11. The high anion gap is probably due to uremic toxins. his lactic acid level is also slightly high. That would contribute. Chronic hyperventilation ( from cirrhosis) could also cause a low bicarb but not usually the elevated anion gap. The delta bicarb equals the delta anion gap so I think this is less likely. I do not see a need to get blood gases right now especially with his auto-anticoagulation and the possibility of bleeding. Sodium level is low. This is probably due to the cirrhosis. he also was dehydrated which would contribute. (2) Alcoholic cirrhosis: Code(s): K70.30 - Alcoholic cirrhosis of liver without ascites Status: Acute Assessment and Plan: The patient has alcoholic cirrhosis. This has caused intermittent encephalopathy, ascites, esophageal varices, edema. (3) Nicotine dependence: Code(s): F17.200 - Nicotine dependence, unspecified, uncomplicated Status: Chronic Assessment and Plan: Hopefully he will stop smoking (4) GERD (gastroesophageal reflux disease): Code(s): K21.9 - Gastro-esophageal reflux disease without esophagitis Status: Acute (5) Hypertension: Code(s): I10 - Essential (primary) hypertension Status: Acute Assessment and Plan: blo (6) DM2 (diabetes mellitus, type 2): Code(s): E11.9 - Type 2 diabetes mellitus without complications Status: Acute Assessment and Plan: Glucose is doing pretty well. Management per hospitalist / tank terminal gauger. (7) Sleep apnea: Code(s): G47.30 - Sleep apnea, unspecified Status: Acute (8) Anemia: Code(s): D64.9 - Anemia, unspecified Status: Acute Assessment and Plan: Hemoglobin is lower than it usual. Possibly due to the GI bleeding. Will check stool Plan discussed with Dr. Pena at length History of Present Illness Reason for Consult Consult date: 04/28/23 Chief Complaint Chief complaint: Renal/Hepatic Failure/GIB/Hyperbili/Cirrhosis/Asci History of Present Illness Narrative: Julio Cesar is a very pleasant 53-year-old gentleman who has multiple medical problems including Laennec's cirrhosis, history of encephalopathy, esophageal varices, ascites, alcohol use disorder, tobacco use disorder, anemia, diabetes, hypertension, hyperlipidemia, peptic ulcer disease, restless legs, sleep apnea, and anxiety among other things. The patient has been ill for quite a while. He has b
[2023-04-28 11:46] LABS: Glucose Point of Care 144 mg/dl (65-105)
[2023-04-28] MEDS: PANTOPRAZOLE SODIUM IV 40 MG VIAL IV PUSH ×2 (11:48→21:45)
[2023-04-28 12:25] LABS: Creatine Kinase 40 U/L (55-170)
[2023-04-28 13:21] LABS: Mean Corpuscular Hemoglobin 31.6 pg (26-34); Mean Corpuscular Volume 87.7 fl (80-100); Platelet Count Result 101 k/mm3 (150-375); Red Blood Count 2.85 M/mm3 (4.6-6.20); Red Cell Distribution Width 22.9 % (11.5-14.5); White Blood Count 10.6 K/mm3 (4.5-10.0)
[2023-04-28 13:30] LABS: Alanine Aminotransferase 133 U/L (6-50)
[2023-04-28 13:31] LABS: Albumin Level 3.3 g/dL (3.5-5.1); Alkaline Phosphatase 185 U/L (38-126); Anion Gap 21 mmol/L (8-16); Aspartate Amino Transferase 317 U/L (17-59); Calcium 7.9 mg/dL (8.4-10.2); Carbon Dioxide 14 mmol/L (22-30); Chloride 89 mmol/L (98-107); Glucose 141 mg/dL (65-110); Potassium 5.9 mmol/L (3.4-5.0)
[2023-04-28 13:35] LABS: Sodium 124 mmol/L (137-145)
[2023-04-28 13:36] LABS: Estimated CRCL calculation 11 ml/min; Estimated Glomerular Filt Rate 6
[2023-04-28 13:37] LABS: Bilirubin,Total 36.7 mg/dL (0.2-1.3)
[2023-04-28 13:39] LABS: Blood Urea Nitrogen 120 mg/dL (9-20)
[2023-04-28 16:17] LABS: Appearance Peritoneal Fluid Cloudy (Clear); Color Peritoneal Fluid Yellow (Colorless); Neutrophils Peritoneal Fluid 24 % (0-25); Source Peritoneal Fluid Peritoneal Fluid
[2023-04-28 16:18] LABS: Lymphocytes Peritoneal Fluid 20 %; Macrophages Peritoneal Fluid 2 %; Mesothelial Cells Peritoneal Fluid 4 %; Monocytes Peritoneal Fluid 50 %
[2023-04-28 16:23] LABS: Nucleated Cells Peritoneal Flu 848 /uL (0-500); RBC Peritoneal Fluid < 2000 /uL (0-100000)
--- NOTE | 2023-04-28 16:24 | WPDPN ---
Progress Note: A&P Assessment and Plan (1) Sepsis: Code(s): A41.9 - Sepsis, unspecified organism Status: Acute (2) Cholangitis: Code(s): K83.09 - Other cholangitis (3) Alcoholic cirrhosis of liver with ascites: Code(s): K70.31 - Alcoholic cirrhosis of liver with ascites Status: Acute (4) Hyperbilirubinemia: Code(s): E80.6 - Other disorders of bilirubin metabolism Status: Acute (5) Acute hepatic failure: Qualifiers: Hepatic coma status: without hepatic coma Qualified Code(s): K72.00 - Acute and subacute hepatic failure without coma Code(s): K72.00 - Acute and subacute hepatic failure without coma Status: Acute (6) Acute renal failure: Qualifiers: Acute renal failure type: unspecified Qualified Code(s): N17.9 - Acute kidney failure, unspecified Code(s): N17.9 - Acute kidney failure, unspecified Status: Acute (7) Tobacco abuse: Code(s): Z72.0 - Tobacco use Status: Acute (8) Esophageal varices: Code(s): I85.00 - Esophageal varices without bleeding Status: Acute (9) CHF (congestive heart failure): Code(s): I50.9 - Heart failure, unspecified Status: Acute (10) High anion gap metabolic acidosis: Code(s): E87.29 - Other acidosis Status: Acute (11) Coagulopathy: Code(s): D68.9 - Coagulation defect, unspecified Status: Acute (12) Alcohol dependence: Code(s): F10.20 - Alcohol dependence, uncomplicated Status: Acute Plan HPI-Narrative: This is a 53 yo male with PMHx significant for Hepatic Cirrhosis. ETOH dependence, insulin dependent T2DM,patient presents to ED due to jaundice, AMS, poor per oral intake, n/v for the last 2 months, patient is able to give some history however very limited due to obtundation, lethargy, deliroum, states? that has not eaten anything in the last 2 months, last time he had an alcoholic drink was 2 months ago, noted to have jaundice for the last several weeks. Has had melena and BRBPR as well. Preliminary work up was significant for? hemoglobin of 10 hematocrit is 29 platelet is 115, 000, sodium is 126, chloride is 86, bicarb is 18, cr is 7.6, BUN is 86, lactic acid is 3.4 total bili is 34, potassium 5.7 anion gag 17 PT 21 PTT 53 . Patient is currently awaiting bed at tertiary care facility at [facility]. 04/28/2023 interval history: Patient remains somnolent concerning for sepsis, unable to provide detailed review of symptoms, patient is seen by desktop publishing operator and Nephrology, [facility]. Subjective Date/time seen: 04/28/23 16:24 Interval history: AMS HPI-Narrative: This is a 53 yo male with PMHx significant for Hepatic Cirrhosis. ETOH dependence, insulin dependent T2DM,patient presents to ED due to jaundice, AMS, poor per oral intake, n/v for the last 2 months, patient is able to give some history however very limited due to obtundation, lethargy, deliroum, states? that has not eaten anything in the last 2 months, last time he had an alcoholic drink was 2 months ago, noted to have jaundice for the last several weeks. Has had melena and BRBPR as well. Preliminary work up was significant for? hemoglobin of 10 hematocrit is 29 platelet is 115, 000, sodium is 126, chloride is 86, bicarb is 18, cr is 7.6, BUN is 86, lactic acid is 3.4 total bili is 34, potassium 5.7 anion gag 17 PT 21 PTT 53 . Patient is currently awaiting bed at tertiary care facility at [facility]. 04/28/2023 interval history: Patient remains somnolent concerning for sepsis, unable to provide detailed review of symptoms, patient is seen by desktop publishing operator and Nephrology, [facility]. Review of Systems Review of Systems: ROS unobtainable: Yes unobtainable due to medical condition Exam Narrative: Patient is comfortable, NAD HEENT: eyes are clear and none ic
[2023-04-28] MEDS: SODIUM ZIRCONIUM CYCLOSILICATE 10 GM POWD.PACK PO (17:20)
[2023-04-28 17:40] LABS: Glucose Point of Care 191 mg/dl (65-105)
[2023-04-28] MEDS: SODIUM BICARBONATE 8.4% 50 MEQ/50 ML SYRINGE 100 MEQ IV PUSH (18:41)
[2023-04-28 22:52] LABS: IFOB Positive Control Positive; Immunochemical Fecal Occult Bl Positive (N)
[2023-04-28] MEDS: INSULIN ASPART (*BKC) 100 UNITS/ML SUB-Q (23:55)
[2023-04-29] VITALS (62 sets, daily range): BP systolic 110–158; BP diastolic 52–110; PULSE 94–109; RESP 9–24; TEMP 35.9–36.8; O2SAT 89–98
[2023-04-29] MEDS: ALBUTEROL SULFATE NEB 2.5 MG/3 ML INH INHALATION (00:17)
[2023-04-29 00:25] LABS: Glucose Point of Care 287 mg/dl (65-105)
[2023-04-29 04:43] LABS: Basophils Percent Auto 0.1 % (0.2-1.2); Hemoglobin 7.3 g/dL (14.0-18.0); Immature Granulocyte Absolute 0.06 K/mm3 (0.00-0.031); Immature Granulocyte Percent A 0.7 % (0-0.5); Immature Platelet Fraction Pct 4.4 % (0.9-11.2); Lymphocytes Absolute Auto 0.52 K/mm3 (0.9-3.2); Lymphocytes Percent Auto 6.4 % (18.3-44.2); Mean Corpuscular HGB Conc 35.8 g/dl (32-36); Mean Corpuscular Hemoglobin 31.7 pg (26-34); Mean Corpuscular Volume 88.7 fl (80-100); Mean Platelet Volume 10.6 fl (7.4-10.4); Monocytes Absolute Auto 0.3 K/mm3 (0.1-0.6); Monocytes Percent Auto 4.1 % (2.6-8.5); Neutrophils Absolute Auto 7.2 K/mm3 (1.3-6.7); Neutrophils Percent Auto 88.7 % (45.5-73.1); Nucleated Red Blood Cells Absolute Auto 0.1 K/mm3 (0.0-0.012); Nucleated Red Blood Cells Perc 0.6 % (0.0-0.2); Platelet Count Result 83 k/mm3 (150-375); Red Cell Distribution Width 23.3 % (11.5-14.5); White Blood Count 8.1 K/mm3 (4.5-10.0)
[2023-04-29 05:13] LABS: Alanine Aminotransferase 112 U/L (6-50); Albumin Level 3.3 g/dL (3.5-5.1); Alkaline Phosphatase 134 U/L (38-126); Ammonia 32 umol/L (9-30); Anion Gap 21 mmol/L (8-16); Aspartate Amino Transferase 272 U/L (17-59); Calcium 7.6 mg/dL (8.4-10.2); Carbon Dioxide 20 mmol/L (22-30); Chloride 88 mmol/L (98-107); Glucose 261 mg/dL (65-110); Phosphorus 8.5 mg/dL (2.5-4.5); Sodium 129 mmol/L (137-145)
[2023-04-29 05:16] LABS: Hematocrit 20.4 % (42.0-52.0)
[2023-04-29 05:17] LABS: Platelet Estimate Decreased (Adequate); Target Cells 1+ (NORMAL)
[2023-04-29 05:18] LABS: Anisocytosis 2+ (NORMAL); Burr Cells 1+ (NORMAL); Macrocytosis 1+ (NORMAL); Schistocytes None Seen (NORMAL)
[2023-04-29 05:32] LABS: Bilirubin,Total 35.5 mg/dL (0.2-1.3); Estimated CRCL calculation 10 ml/min; Estimated Glomerular Filt Rate 6
[2023-04-29 05:34] LABS: Blood Urea Nitrogen 137 mg/dL (9-20)
[2023-04-29] MEDS: ALBUMIN HUMAN 25% 25 GM/100 ML 100 ML IVPB ×3 (06:43→19:33)
[2023-04-29] MEDS: SODIUM CHLORIDE 0.9% IV 1,000 ML 75 ML IV CONT (06:43)
[2023-04-29 07:05] LABS: Glucose Point of Care 255 mg/dl (65-105)
[2023-04-29] MEDS: HYDROCORTISONE SODIUM SUCCINATE 100 MG/2 ML VIAL IV PUSH ×3 (07:40→21:03)
[2023-04-29] MEDS: INSULIN ASPART (*BKC) 100 UNITS/ML SUB-Q ×2 (07:40→14:49)
[2023-04-29 07:58] LABS: INR 2.2; Prothrombin Time 26.1 Seconds (11.1-14.7)
[2023-04-29 07:59] LABS: Fibrinogen 203 mg/dl (215-510)
[2023-04-29 08:07] LABS: Lipase 1374 U/L (23-300)
--- NOTE | 2023-04-29 08:36 | WPDINTPN ---
Progress Note: A&P Assessment and Plan (1) Sepsis: Code(s): A41.9 - Sepsis, unspecified organism Status: Acute Assessment and Plan: Secondary to SBP and UTI Status post paracentesis and peritoneal fluid was cloudy with 848 nucleated cells Continue meropenem Urine and blood culture ordered and pending Blood pressure adequate at this time and patient not requiring vasopressors Will hold further iV fluids Paracenteses with studies for ascites fluid ordered and pending (2) GIB (gastrointestinal bleeding): Qualifiers: GI bleed type/associated pathology: unspecified gastrointestinal hemorrhage type Qualified Code(s): K92.2 - Gastrointestinal hemorrhage, unspecified Code(s): K92.2 - Gastrointestinal hemorrhage, unspecified Status: Acute Assessment and Plan: Varices versus peptic ulcer disease Patient had bloody bowel movements overnight 1 unit PRBC transfusion ordered Continue to monitor hemoglobin q.6 hours Continue iV PPI q.12 hours, octreotide infusion 04/28 Vitamin K IM 10 mg NPO GI follow Will transfuse 2 units of FFP and administer 35 mcg of DDAVP due to uremia Will discuss with GI (3) Alcoholic cirrhosis of liver with ascites: Code(s): K70.31 - Alcoholic cirrhosis of liver with ascites Status: Acute Assessment and Plan: Patient has chronic cirrhosis secondary to alcoholic liver disease and is normally followed at [facility] He has resumed drinking alcohol after of his and now presents with elevated liver enzymes, ammonia, INR, ascites and abdominal pain His discriminant function is 67.6 and he is on hydrocortisone Vitamin K and FFP for coagulopathy Treatment of GI bleed as above Lactulose for hepatic encephalopathy and ammonia level is improved Monitor INR liver enzymes ammonia (4) Acute renal failure: Qualifiers: Acute renal failure type: unspecified Qualified Code(s): N17.9 - Acute kidney failure, unspecified Code(s): N17.9 - Acute kidney failure, unspecified Status: Acute Assessment and Plan: Acute renal failure likely secondary to prerenal etiology like dehydration hypotension and sepsis which may have progress to ATN. Patient also has possibility of hepatorenal syndrome Although his urine output has improved it is still overall low Creatinine increased to 9.6 BUN 137 which may be artificially elevated due to GI bleed Discussed with Dr. Baig from Nephrology. Will proceed with initiation of dialysis. I spoke to patient and discussed his lab results and kidney function. Discussed pros and cons of starting dialysis and insertion of temporary dialysis catheter. He verbalized understanding and agreed to proceed. CT scan did not show any hydronephrosis or obstruction Monitor urine output electrolytes and creatinine (5) Coagulopathy: Code(s): D68.9 - Coagulation defect, unspecified Status: Acute Assessment and Plan: Secondary to liver dysfunction 04/28 Vitamin K 10 mg IM x1 04/29 Will give 2 units of FFP patient and DDAVP (6) Hyponatremia: Code(s): E87.1 - Hypo-osmolality and hyponatremia Status: Acute Assessment and Plan: Chronic secondary to cirrhosis Improved with gentle hydration Monitor sodium level (7) Hyperbilirubinemia: Code(s): E80.6 - Other disorders of bilirubin metabolism Status: Acute Assessment and Plan: See above (8) Alcoholic hepatitis: Code(s): K70.10 - Alcoholic hepatitis without ascites Status: Acute Assessment and Plan: See above (9) Esophageal varices: Code(s): I85.00 - Esophageal varices without bleeding Status: Acute Assessment and Plan: See above (10) Hepatic encephalopathy: Code(s): K76.82 - Hepatic encephalopathy Status: Acute Assessment and Plan: See above (11) Abdominal pain: Code(s): R10.9 - Unspecified abdominal pain Stat
[2023-04-29] MEDS: CALCIUM GLUC 2,000 MG/NS 100ML 2,000 MG/100 ML BAG 100 MG IVPB (10:13)
[2023-04-29] MEDS: LACTULOSE 20 GM/30 ML UDC PO ×2 (10:20→19:36)
[2023-04-29] MEDS: rifAXIMin 550 MG TABLET PO ×2 (10:21→20:19)
--- NOTE | 2023-04-29 11:34 | PM.EVENT ---
Event Note Event Note Event Note: Patient had another large bloody bowel movement. Will transfuse 1 more unit of PRBC. Discussed with Dr. Valencia from GI. He plans to do EGD later today.
--- NOTE | 2023-04-29 11:35 | WPDPROCEDUR ---
Procedures Central Line Placement Right IJ: Central Line Date: 04/29/23 Central Line Time: 10:45 Discussed w/ the patient/family/POA,the placement of a central venous catheter, including its clinical necessity/indication & associated potential risks, benifits and alternatives.: Yes The patient/family/POA understand(s) and acknowledge(s) the need to proceed with central venous catheter insertion as an important element of the patient's clinical management.: Yes Consent: I have discussed with the patient the non-emergent placement of a temporary dialysis catheter, including its clinical necessity/indication and associated potential risks and complications. The patient and/or surrogate understand(s) and acknowledge(s) the need to proceed with central venous catheter insertion as an important element of the patient's clinical management. Time Out Performed: Yes Patient Position: supine Patient placed on monitor/pulse ox: Yes Provider Prep: mask, sterile gown, sterile gloves, Max. sterile barrier precautions, cap and hand hygiene with conventional soap/water or alcohol based hand rub Central line prep: Povidone-Iodine 1% Local anesthesia used: lidocaine 1% Amount of anesthesia used (ml): 5 Upper Sorbian: 12 Length (cm): 16 Depth of Insertion (cm): 16 Post Procedure: sutured in place, good blood return, all ports aspirated, flushed, capped, transparent dressing and aseptic technique maintained throughout procedure Post procedure x-ray: tip of catheter in good position and no pneumothorax seen Patient tolerated procedure: well Complications: none
[2023-04-29] MEDS: SODIUM CHLORIDE 0.9% IV 250 ML 30 ML IV CONT (12:17)
[2023-04-29 12:47] LABS: Glucose Point of Care 237 mg/dl (65-105)
[2023-04-29] MEDS: SODIUM CHLORIDE 0.9% IV 500 ML 10 ML IV CONT (12:51)
--- NOTE | 2023-04-29 12:52 | WPDANESEPPF ---
Anes - Initial Pre Proc Eval Procedure: Operation Date: 04/29/23 15:30 Proposed Procedures p Esophagogastroduodenoscopy - Tuan Valencia MD Date/Time: 04/29/23 12:52 Surgeon: Charlie Hernandez MD Pre Op Diagnosis: Renal/Hepatic Failure/GIB/Hyperbili/Cirrhosis/Asci Patient Data Age: 53 Gender: M Height: 1.75 m Weight: 107.4 kg Last Vital Signs Temp 98 F 04/29/23 12:44 Pulse 101 H 04/29/23 12:44 Resp 20 04/29/23 12:44 BP 152/83 H 04/29/23 12:44 Pulse Ox 94 04/29/23 12:44 O2 Del Method Room Air 04/29/23 12:44 O2 Flow Rate 2 04/29/23 08:00 FiO2 28 04/28/23 08:01 Allergies Allergy/AdvReac Type Severity Reaction Status Date / Time iohexol Allergy Severe Difficulty Verified 04/29/23 12:41 [From contrast - CT, X-RAY] Breathing Home Medications Medication Instructions Recorded Confirmed Type lactulose 20 gram/30 mL oral 20 g (30 mL) PO BID #1,200 mL 01/14/22 04/27/23 Rx solution liraglutide 0.6 mg/0.1 mL (18 mg/3 1.2 mg subcut DAILY 06/06/22 04/27/23 History mL) subcutaneous pen injector (Victoza 2-Jayson) albuterol sulfate 90 mcg/actuation 2 puff inhalation Q4-6H PRN 08/12/22 04/27/23 Rx aerosol inhaler Shortness Of Breath #8.5 grams rifaximin 550 mg tablet (Xifaxan) 550 mg PO BID #180 tabs 08/26/22 04/27/23 Rx gabapentin 100 mg capsule See Rx Instructions .Route 02/18/23 04/27/23 Rx .COMPLEX #90 caps insulin glargine 100 unit/mL (3 20 unit (0.2 mL) subcut DAILY #15 02/18/23 04/27/23 Rx mL) subcutaneous pen (Lantus mL Solostar U-100 Insulin) cyclobenzaprine 10 mg tablet 10 mg PO BID 04/27/23 04/27/23 History dapagliflozin propanediol 10 mg 10 mg PO DAILY 04/27/23 04/27/23 History tablet (Farxiga) omeprazole 40 mg capsule,delayed 40 mg PO DAILY 04/27/23 04/27/23 History release propranolol 10 mg tablet 10 mg PO TID 04/27/23 04/27/23 History Laboratory Tests 04/27/23 04/27/23 04/28/23 16:25 16:50 11:58 WBC 10.6 H K/mm3 (4.5-10.0) RBC 2.85 L M/mm3 (4.6-6.20) Hgb 9.0 L g/dL (14.0-18.0) Hct 25.0 L % (42.0-52.0) MCV 87.7 fl (80-100) MCH 31.6 pg (26-34) MCHC 36.0 g/dl (32-36) RDW 22.9 H % (11.5-14.5) Plt Count 101 L k/mm3 (150-375) MPV 11.0 H fl (7.4-10.4) Immature Gran % (Auto) Neut % (Auto) Lymph % (Auto) [place] % (Auto) Eos % (Auto) Baso % (Auto) Lymph # (Auto) [place] # (Auto) Eos # (Auto) Baso # (Auto) Abs Immat Gran (auto) Absolute Neuts (auto) Absolute Nucleated RBC Nucleated RBC % Platelet Estimate % Immature Plt Fraction Anisocytosis Macrocytosis Target Cells Alan Cells Schistocytes PT INR Fibrinogen Sodium 121 L mmol/L 124 L mmol/L (137-145) (137-145) Potassium 5.7 H mmol/L 5.9 H mmol/L (3.4-5.0) (3.4-5.0) Chloride 86 L mmol/L 89 L mmol/L (98-107) (98-107) Carbon Dioxide 18 L mmol/L 14 L mmol/L (22-30) (22-30) Anion Gap 17 H mmol/L 21 H mmol/L (8-16) (8-16) BUN 120 H D mg/dL 120 H mg/dL (9-20) (9-20) Creatinine 7.40 H mg/dL 8.70 H mg/dL (0.7-1.3) (0.7-1.3) Estim Creat Clear Calc 13 ml/min 11 ml/min Estimated GFR 8 L 6 L (59 - ) (59 - ) Glucose 125 H mg/dL 141 H mg/dL (65-110) (65-110) POC Capillary Glucose Calcium 8.4 mg/dL 7.9 L mg/dL (8.4-10.2) (8.4-10.2) Phosphorus Magnesium Total Bilirubin 34.0 H mg/dL 36.7 H mg/dL (0.2-1.3) (0.2-1.3) AST 424 H U/L 317 H U/L (17-59) (17-59) ALT 156 H U/L 133 H U/L (6-50) (6-50) Alkaline Phosphata
[2023-04-29 14:33] LABS: Glucose Point of Care 236 mg/dl (65-105)
[2023-04-29] MEDS: PANTOPRAZOLE SODIUM IV 40 MG VIAL IV PUSH ×2 (15:11→20:19)
--- NOTE | 2023-04-29 15:25 | PC.NURSE ---
Patient advised that he wishes his step-mother and father, Farzana and Bairon Osman, to be designated to make decisions for him if he is unable. Previously he stated that his daughter, Nirmala, would be designated to make decisions for him. Patient is oriented x4 at the time of this conversation. Consulted care coordination for additional information.
[2023-04-29 16:11] LABS: Hemoglobin 7.5 g/dL (14.0-18.0); Mean Corpuscular HGB Conc 35.9 g/dl (32-36); Mean Corpuscular Hemoglobin 31.9 pg (26-34); Mean Corpuscular Volume 88.9 fl (80-100); Mean Platelet Volume 11.1 fl (7.4-10.4); Platelet Count Result 69 k/mm3 (150-375); Red Blood Count 2.35 M/mm3 (4.6-6.20); Red Cell Distribution Width 20.7 % (11.5-14.5); White Blood Count 9.4 K/mm3 (4.5-10.0)
[2023-04-29 16:16] LABS: Hematocrit 20.9 % (42.0-52.0)
--- NOTE | 2023-04-29 16:37 | P.PNNP_ITS ---
Progress Note: A&P Assessment and Plan (1) Acute kidney injury: Code(s): N17.9 - Acute kidney failure, unspecified Status: Acute Assessment and Plan: * normal creatinine in August 2022 (0.91mg/dl) * several possible issues in play: * prerenal factors from nausea/vomiting/diarrhea * chronic prerenal azotemia for decreased ECV from liver cirrhosis/liver physiology * early infection/sepsis (from possible UTI and SBP) leading to ATN * hepatorenal syndrome * relative anemia * evaluation to date: * renal ultrasound negative for obstruction * CPK low * urine electrolytes prerenal (from N/V/D versus liver disease versus combo of both?) * UA suggestive of possible infection * urine output better with IVFs (argues against HRS) * however, BUN and creatinine are quite high and continue to rise... * plan initiation of HD today for optimization of clearance and volume status (significant input of IVF, IV medications, PRBCs...etc) * temporary HD catheter in place and receiving HD currently * plan HD tomorrow and likely again the following day * follow trend of repeat labs and UOP for possible renal recovery (2) Alcoholic cirrhosis of liver with ascites: Code(s): K70.31 - Alcoholic cirrhosis of liver with ascites Status: Acute Assessment and Plan: * thought to be secondary to alcoholic liver disease * follows with [facility] Hepatology * resumed drinking recently after the of his * now complicated by: * elevated LFTs * elevated ammonia/hepatic encephalopathy * coagulopathy/elevated INR * worsening ascites * abdominal pain * GI bleed/anemia * vitamin K and FFP for coagulopathy * lactulose for elevated ammonia/hepatic encephalopathy * paracentesis for ascites * treatment of GI bleed/anemia as noted (see #3 and #4) * Gastroenterology following * follow trend of liver enzymes and ammonia (3) GIB (gastrointestinal bleeding): Qualifiers: GI bleed type/associated pathology: unspecified gastrointestinal hemorrhage type Qualified Code(s): K92.2 - Gastrointestinal hemorrhage, unspecified Code(s): K92.2 - Gastrointestinal hemorrhage, unspecified Status: Acute Assessment and Plan: * presumably due to varices and gastritis * s/p EGD earlier today with results noted * PRBC transfusion per protoco; * continue IV PPI and octreotide gtt * Vitamin K/FFP as needed * agree with DDAVP due to concerns of possible uremic bleeding * Gastroenterology following (4) Anemia: Code(s): D64.9 - Anemia, unspecified Status: Acute Assessment and Plan: * partly related to DOMINGO/ARF * start Epogen with dialysis * follow trend of H/H (5) Hyponatremia: Code(s): E87.1 - Hypo-osmolality and hyponatremia Status: Acute Assessment and Plan: * likely secondary liver cirrhosis with contributions from DOMINGO * better/Improved s/p gentle IVF hydration * dialysis will stabilize as well * follow trend of sodium (6) Pancreatitis: Code(s): K85.90 - Acute pancreatitis without necrosis or infection, unspecified Status: Acute Assessment and Plan: * suspect alcohol induced pancreatities * elevated lipase noted in association with abdominal pain * CT scan of abdomen/pelvis noted on admission * continue supportive therapy (7) Hypertension: Code(s): I10 - Essential (primary) hypertension Status: Acute Assessment and Plan: * reasonable control at this time * follow trend of h
--- NOTE | 2023-04-29 16:37 | PM.PNNEP ---
Progress Note: A&P Assessment and Plan (1) Acute kidney injury: Code(s): N17.9 - Acute kidney failure, unspecified Status: Acute Assessment and Plan: normal creatinine in August 2022 (0.91mg/dl) several possible issues in play: prerenal factors from nausea/vomiting/diarrhea chronic prerenal azotemia for decreased ECV from liver cirrhosis/liver physiology early infection/sepsis (from possible UTI and SBP) leading to ATN hepatorenal syndrome relative anemia evaluation to date: renal ultrasound negative for obstruction CPK low urine electrolytes prerenal (from N/V/D versus liver disease versus combo of both?) UA suggestive of possible infection urine output better with IVFs (argues against HRS) however, BUN and creatinine are quite high and continue to rise... plan initiation of HD today for optimization of clearance and volume status (significant input of IVF, IV medications, PRBCs...etc) temporary HD catheter in place and receiving HD currently plan HD tomorrow and likely again the following day follow trend of repeat labs and UOP for possible renal recovery (2) Alcoholic cirrhosis of liver with ascites: Code(s): K70.31 - Alcoholic cirrhosis of liver with ascites Status: Acute Assessment and Plan: thought to be secondary to alcoholic liver disease follows with [facility] Hepatology resumed drinking recently after the of his now complicated by: elevated LFTs elevated ammonia/hepatic encephalopathy coagulopathy/elevated INR worsening ascites abdominal pain GI bleed/anemia vitamin K and FFP for coagulopathy lactulose for elevated ammonia/hepatic encephalopathy paracentesis for ascites treatment of GI bleed/anemia as noted (see #3 and #4) Gastroenterology following follow trend of liver enzymes and ammonia (3) GIB (gastrointestinal bleeding): Qualifiers: GI bleed type/associated pathology: unspecified gastrointestinal hemorrhage type Qualified Code(s): K92.2 - Gastrointestinal hemorrhage, unspecified Code(s): K92.2 - Gastrointestinal hemorrhage, unspecified Status: Acute Assessment and Plan: presumably due to varices and gastritis s/p EGD earlier today with results noted PRBC transfusion per protoco; continue IV PPI and octreotide gtt Vitamin K/FFP as needed agree with DDAVP due to concerns of possible uremic bleeding Gastroenterology following (4) Anemia: Code(s): D64.9 - Anemia, unspecified Status: Acute Assessment and Plan: partly related to DOMINGO/ARF start Epogen with dialysis follow trend of H/H (5) Hyponatremia: Code(s): E87.1 - Hypo-osmolality and hyponatremia Status: Acute Assessment and Plan: likely secondary liver cirrhosis with contributions from DOMINGO better/Improved s/p gentle IVF hydration dialysis will stabilize as well follow trend of sodium (6) Pancreatitis: Code(s): K85.90 - Acute pancreatitis without necrosis or infection, unspecified Status: Acute Assessment and Plan: suspect alcohol induced pancreatities elevated lipase noted in association with abdominal pain CT scan of abdomen/pelvis noted on admission continue supportive therapy (7) Hypertension: Code(s): I10 - Essential (primary) hypertension Status: Acute Assessment and Plan: reasonable control at this time follow trend of hemodynamics (8) DM2 (diabetes mellitus, type 2): Code(s): E11.9 - Type 2 diabetes mellitus without complications Status: Acute Assessment and Plan: follow accu-cheks glycemic control per hospitalists/welfare case worker Discussed case with Dr. Pena earlier this AM Will continue to follow. Subjective Date/time seen: 04/29/23 16:37 Interval history: Follow-up for acute kidney injury/acute renal failure. Chart reviewed -- assuming care from Dr. Solorzano; renal func
--- NOTE | 2023-04-29 17:26 | WPDPN ---
Progress Note: A&P Assessment and Plan (1) Sepsis: Code(s): A41.9 - Sepsis, unspecified organism Status: Acute (2) Cholangitis: Code(s): K83.09 - Other cholangitis (3) Alcoholic cirrhosis of liver with ascites: Code(s): K70.31 - Alcoholic cirrhosis of liver with ascites Status: Acute (4) Hyperbilirubinemia: Code(s): E80.6 - Other disorders of bilirubin metabolism Status: Acute (5) Acute hepatic failure: Qualifiers: Hepatic coma status: without hepatic coma Qualified Code(s): K72.00 - Acute and subacute hepatic failure without coma Code(s): K72.00 - Acute and subacute hepatic failure without coma Status: Acute (6) Acute renal failure: Qualifiers: Acute renal failure type: unspecified Qualified Code(s): N17.9 - Acute kidney failure, unspecified Code(s): N17.9 - Acute kidney failure, unspecified Status: Acute (7) Tobacco abuse: Code(s): Z72.0 - Tobacco use Status: Acute (8) Esophageal varices: Code(s): I85.00 - Esophageal varices without bleeding Status: Acute (9) CHF (congestive heart failure): Code(s): I50.9 - Heart failure, unspecified Status: Acute (10) High anion gap metabolic acidosis: Code(s): E87.29 - Other acidosis Status: Acute (11) Coagulopathy: Code(s): D68.9 - Coagulation defect, unspecified Status: Acute (12) Alcohol dependence: Code(s): F10.20 - Alcohol dependence, uncomplicated Status: Acute Plan HPI-Narrative: This is a 53 yo male with PMHx significant for Hepatic Cirrhosis. ETOH dependence, insulin dependent T2DM,patient presents to ED due to jaundice, AMS, poor per oral intake, n/v for the last 2 months, patient is able to give some history however very limited due to obtundation, lethargy, deliroum, states? that has not eaten anything in the last 2 months, last time he had an alcoholic drink was 2 months ago, noted to have jaundice for the last several weeks. Has had melena and BRBPR as well. Preliminary work up was significant for? hemoglobin of 10 hematocrit is 29 platelet is 115, 000, sodium is 126, chloride is 86, bicarb is 18, cr is 7.6, BUN is 86, lactic acid is 3.4 total bili is 34, potassium 5.7 anion gag 17 PT 21 PTT 53 . Patient is currently awaiting bed at tertiary care facility at [facility]. 04/29/2023 interval history: Patient remains somnolent concerning for sepsis, unable to provide detailed review of symptoms, Patient had EGD showed none bleeding esophageal varices and gastritis, 2 large varices were banded, and GI recommended to continue octreotide, and protonix 40mg IV BID, patient is seen by postdoctoral scholar and seen by Nephrology patient is having HD today, patient is been accepted at [facility] waiting for transfer. Subjective Date/time seen: 04/29/23 17:26 Interval history: 04/29/2023 interval history: Patient remains somnolent concerning for sepsis, unable to provide detailed review of symptoms, Patient had EGD showed none bleeding esophageal varices and gastritis, 2 large varices were banded, and GI recommended to continue octreotide, and protonix 40mg IV BID, patient is seen by postdoctoral scholar and seen by Nephrology patient is having HD today, patient is been accepted at [facility] waiting for transfer. Review of Systems Review of Systems: ROS unobtainable: Yes unobtainable due to mental status (lethargy, delirium, obtundation, encephalopathy) Objective Data Vital Signs Vital Signs: Vital Signs - 24 hr 04/28/23 18:00 04/28/23 18:00 04/28/23 20:00 Temperature 97.6 F Pulse Rate 101 H 101 H 102 H Pulse Rate [Bilateral Radial] Respiratory Rate 13 Blood Pressure 151/69 H Pulse Oximetry 96 Oxygen Delivery Oxygen Flow Rate 04/28/23 20:00 04/28/23 22:00 04/28/23 22:00 Temperature 97.9 F Pulse Rate 102 H 103 H 103 H Pulse Rate [Bilateral Radial] Respiratory Rate 13 18 Bloo
[2023-04-29 17:55] LABS: Glucose Point of Care 178 mg/dl (65-105)
[2023-04-29] MEDS: EPOETIN ALFA-EPBX 10,000 UNITS/ML VIAL 10000 UNITS IV PUSH (17:55)
[2023-04-29] MEDS: MEROPENEM 500 MG in SODIUM CHLORIDE 0.9% IV 100 ML 200 ML IVPB (19:33)
[2023-04-29 20:13] LABS: Glucose Point of Care 165 mg/dl (65-105)
[2023-04-29 20:20] LABS: Hemoglobin 7.4 g/dL (14.0-18.0); Mean Corpuscular HGB Conc 36.8 g/dl (32-36); Mean Corpuscular Hemoglobin 31.9 pg (26-34); Mean Corpuscular Volume 86.6 fl (80-100); Mean Platelet Volume 11.4 fl (7.4-10.4); Platelet Count Result 63 k/mm3 (150-375); Red Blood Count 2.32 M/mm3 (4.6-6.20); Red Cell Distribution Width 20.3 % (11.5-14.5); White Blood Count 8.5 K/mm3 (4.5-10.0)
[2023-04-29 20:25] LABS: Hematocrit 20.1 % (42.0-52.0)
[2023-04-29] MEDS: HYDROmorphone HCL INJ (*CRX) 1 MG/ML SYR 3 MG IV PUSH (21:02)
[2023-04-30] VITALS (77 sets, daily range): BP systolic 126–178; BP diastolic 71–104; PULSE 88–106; RESP 8–22; TEMP 36–36.9; O2SAT 87–97
[2023-04-30 00:11] LABS: Glucose Point of Care 212 mg/dl (65-105)
[2023-04-30] MEDS: INSULIN ASPART (*BKC) 100 UNITS/ML SUB-Q ×4 (00:13→21:17)
[2023-04-30 00:22] LABS: Hemoglobin 7.5 g/dL (14.0-18.0); Immature Platelet Fraction Pct 5.6 % (0.9-11.2); Mean Corpuscular HGB Conc 36.1 g/dl (32-36); Mean Corpuscular Hemoglobin 31.8 pg (26-34); Mean Corpuscular Volume 88.1 fl (80-100); Mean Platelet Volume 11.3 fl (7.4-10.4); Platelet Count Result 66 k/mm3 (150-375); Red Blood Count 2.36 M/mm3 (4.6-6.20); Red Cell Distribution Width 20.8 % (11.5-14.5); White Blood Count 10.1 K/mm3 (4.5-10.0)
[2023-04-30 00:24] LABS: Hematocrit 20.8 % (42.0-52.0)
[2023-04-30] MEDS: ALBUMIN HUMAN 25% 25 GM/100 ML 100 ML IVPB ×4 (00:32→17:44)
[2023-04-30 05:52] LABS: Glucose Point of Care 217 mg/dl (65-105)
[2023-04-30] MEDS: HYDROCORTISONE SODIUM SUCCINATE 100 MG/2 ML VIAL IV PUSH ×3 (05:55→21:13)
[2023-04-30 05:58] LABS: Basophils Percent Auto 0.1 % (0.2-1.2); Immature Granulocyte Percent A 1.2 % (0-0.5); Immature Platelet Fraction Pct 5.4 % (0.9-11.2); Lymphocytes Absolute Auto 0.44 K/mm3 (0.9-3.2); Lymphocytes Percent Auto 5.4 % (18.3-44.2); Mean Corpuscular HGB Conc 35.9 g/dl (32-36); Mean Corpuscular Hemoglobin 32.1 pg (26-34); Mean Corpuscular Volume 89.3 fl (80-100); Mean Platelet Volume 10.8 fl (7.4-10.4); Monocytes Absolute Auto 0.8 K/mm3 (0.1-0.6); Monocytes Percent Auto 9.3 % (2.6-8.5); Neutrophils Absolute Auto 6.8 K/mm3 (1.3-6.7); Nucleated Red Blood Cells Absolute Auto 0.1 K/mm3 (0.0-0.012); Nucleated Red Blood Cells Perc 1.2 % (0.0-0.2); Platelet Count Result 59 k/mm3 (150-375); Red Blood Count 2.15 M/mm3 (4.6-6.20); White Blood Count 8.1 K/mm3 (4.5-10.0)
[2023-04-30 06:02] LABS: Hematocrit 19.2 % (42.0-52.0); Hemoglobin 6.9 g/dL (14.0-18.0)
[2023-04-30 06:06] LABS: Prothrombin Time 23.8 Seconds (11.1-14.7)
[2023-04-30 06:26] LABS: Alanine Aminotransferase 116 U/L (6-50); Albumin Level 3.8 g/dL (3.5-5.1); Alkaline Phosphatase 113 U/L (38-126); Anion Gap 14 mmol/L (8-16); Aspartate Amino Transferase 238 U/L (17-59); Blood Urea Nitrogen 107 mg/dL (9-20); Calcium 8.4 mg/dL (8.4-10.2); Carbon Dioxide 27 mmol/L (22-30); Chloride 93 mmol/L (98-107); Estimated CRCL calculation 17 ml/min; Estimated Glomerular Filt Rate 10; Glucose 233 mg/dL (65-110); Lipase 1310 U/L (23-300); Magnesium 2.1 mg/dL (1.6-2.3); Sodium 134 mmol/L (137-145)
[2023-04-30 06:38] LABS: Anisocytosis 2+ (NORMAL); Basophilic Stippling 1+ (NORMAL); Platelet Estimate Decreased (Adequate); Schistocytes None Seen (NORMAL); Target Cells 2+ (NORMAL)
[2023-04-30 06:56] LABS: Ammonia 23 umol/L (9-30)
[2023-04-30 08:04] LABS: Triglycerides 141 mg/dL (<150)
[2023-04-30 08:07] LABS: Glucose Point of Care 221 mg/dl (65-105)
[2023-04-30] MEDS: INSULIN GLARGINE (*BKC) 100 UNITS/ML 15 UNITS SUB-Q (08:15)
--- NOTE | 2023-04-30 08:15 | WPDINTPN ---
Progress Note: A&P Assessment and Plan (1) Sepsis: Code(s): A41.9 - Sepsis, unspecified organism Status: Acute Assessment and Plan: Secondary to SBP and UTI Status post paracentesis and peritoneal fluid was cloudy with 848 nucleated cells Continue meropenem Urine and blood culture ordered and pending Blood pressure adequate at this time and patient not requiring vasopressors Will hold further iV fluids (2) GIB (gastrointestinal bleeding): Qualifiers: GI bleed type/associated pathology: unspecified gastrointestinal hemorrhage type Qualified Code(s): K92.2 - Gastrointestinal hemorrhage, unspecified Code(s): K92.2 - Gastrointestinal hemorrhage, unspecified Status: Acute Assessment and Plan: Varices versus peptic ulcer disease Continue to monitor hemoglobin q.6 hours Continue iV PPI q.12 hours, octreotide infusion 04/28 Vitamin K IM 10 mg 04/29 underwent EGD which showed nonbleeding esophageal varices, gastritis intraluminal gastric blood. Patient underwent band ligation of the varices 04/29 2 units PRBC, 2 units of FFP and DDAVP was given GI following Will start beta-rahul once patient off of octreotide infusion (3) Alcoholic cirrhosis of liver with ascites: Code(s): K70.31 - Alcoholic cirrhosis of liver with ascites Status: Acute Assessment and Plan: Patient has chronic cirrhosis secondary to alcoholic liver disease and is normally followed at [facility] He has resumed drinking alcohol after of his and now presents with elevated liver enzymes, ammonia, INR, ascites and abdominal pain His discriminant function is 67.6 and he is on hydrocortisone Vitamin K and FFP for coagulopathy Treatment of GI bleed as above Lactulose for hepatic encephalopathy and ammonia level is improved Monitor INR liver enzymes ammonia (4) Acute renal failure: Qualifiers: Acute renal failure type: unspecified Qualified Code(s): N17.9 - Acute kidney failure, unspecified Code(s): N17.9 - Acute kidney failure, unspecified Status: Acute Assessment and Plan: Acute renal failure likely secondary to prerenal etiology like dehydration hypotension and sepsis which may have progress to ATN. Patient also has possibility of hepatorenal syndrome Although his urine output was improving but was still very low 04/29 Creatinine increased to 9.6 BUN 137 which may be artificially elevated due to GI bleed. For discussion with Dr. Baig from Nephrology, decision was made to initiate dialysis. Temporary dialysis catheter was placed and patient underwent hemodialysis and tolerated well 04/30 2nd hemodialysis session plan today CT scan did not show any hydronephrosis or obstruction Monitor urine output electrolytes and creatinine (5) Coagulopathy: Code(s): D68.9 - Coagulation defect, unspecified Status: Acute Assessment and Plan: Secondary to liver dysfunction 04/28 Vitamin K 10 mg IM x1 04/29 patient was given 2 units of FFP patient and DDAVP (6) Hyponatremia: Code(s): E87.1 - Hypo-osmolality and hyponatremia Status: Acute Assessment and Plan: Chronic secondary to cirrhosis Improved Monitor sodium level (7) Hyperbilirubinemia: Code(s): E80.6 - Other disorders of bilirubin metabolism Status: Acute Assessment and Plan: See above (8) Alcoholic hepatitis: Code(s): K70.10 - Alcoholic hepatitis without ascites Status: Acute Assessment and Plan: See above (9) Esophageal varices: Code(s): I85.00 - Esophageal varices without bleeding Status: Acute Assessment and Plan: See above (10) Hepatic encephalopathy: Code(s): K76.82 - Hepatic encephalopathy Status: Acute Assessment and Plan: See above (11) Abdominal pain: Code(s): R10.9 - Unspecified abdominal pain Status: Acute Assessment and Plan: Secondary to
[2023-04-30] MEDS: rifAXIMin 550 MG TABLET PO ×2 (08:16→21:13)
[2023-04-30] MEDS: PANTOPRAZOLE SODIUM IV 40 MG VIAL IV PUSH ×2 (08:16→21:13)
[2023-04-30 11:22] LABS: Glucose Point of Care 195 mg/dl (65-105)
[2023-04-30] MEDS: LACTULOSE 20 GM/30 ML UDC PO ×2 (11:22→17:44)
[2023-04-30 12:50] LABS: Hemoglobin 7.4 g/dL (14.0-18.0); Immature Platelet Fraction Pct 5.9 % (0.9-11.2); Mean Corpuscular HGB Conc 36.1 g/dl (32-36); Mean Corpuscular Hemoglobin 32.5 pg (26-34); Mean Corpuscular Volume 89.9 fl (80-100); Mean Platelet Volume 10.3 fl (7.4-10.4); Platelet Count Result 57 k/mm3 (150-375); Red Blood Count 2.28 M/mm3 (4.6-6.20); Red Cell Distribution Width 20.9 % (11.5-14.5); White Blood Count 8.7 K/mm3 (4.5-10.0)
[2023-04-30] MEDS: HYDROmorphone HCL INJ (*CRX) 1 MG/ML SYR IV PUSH ×3 (12:50→17:50)
[2023-04-30 12:56] LABS: Hematocrit 20.5 % (42.0-52.0)
--- NOTE | 2023-04-30 13:47 | PM.PNNEP ---
Progress Note: A&P Assessment and Plan (1) Acute kidney injury: Code(s): N17.9 - Acute kidney failure, unspecified Status: Acute Assessment and Plan: normal creatinine in August 2022 (0.91mg/dl) several possible issues in play: prerenal factors from nausea/vomiting/diarrhea chronic prerenal azotemia for decreased ECV from liver cirrhosis/liver physiology early infection/sepsis (from possible UTI and SBP) leading to ATN hepatorenal syndrome relative anemia evaluation to date: renal ultrasound negative for obstruction CPK low urine electrolytes prerenal (from N/V/D versus liver disease versus combo of both?) UA suggestive of possible infection increased urine output s/p IVFs (argues against HRS) better urine output noted in general s/p temporary HD catheter (04/29/23) HD todayand likely again tomorrow follow trend of repeat labs and UOP for possible renal recovery (2) Alcoholic cirrhosis of liver with ascites: Code(s): K70.31 - Alcoholic cirrhosis of liver with ascites Status: Acute Assessment and Plan: thought to be secondary to alcoholic liver disease follows with [facility] Hepatology resumed drinking recently after the of his now complicated by: elevated LFTs elevated ammonia/hepatic encephalopathy coagulopathy/elevated INR worsening ascites abdominal pain GI bleed/anemia vitamin K and FFP for coagulopathy lactulose for elevated ammonia/hepatic encephalopathy paracentesis for ascites treatment of GI bleed/anemia as noted (see #3 and #4) Gastroenterology following follow trend of liver enzymes and ammonia (3) GIB (gastrointestinal bleeding): Qualifiers: GI bleed type/associated pathology: unspecified gastrointestinal hemorrhage type Qualified Code(s): K92.2 - Gastrointestinal hemorrhage, unspecified Code(s): K92.2 - Gastrointestinal hemorrhage, unspecified Status: Acute Assessment and Plan: presumably due to varices and gastritis s/p EGD earlier today with results noted PRBC transfusion per protoco; continue IV PPI and octreotide gtt Vitamin K/FFP as needed Gastroenterology following (4) Anemia: Code(s): D64.9 - Anemia, unspecified Status: Acute Assessment and Plan: partly related to DOMINGO/ARF start Epogen with dialysis follow trend of H/H (5) Hyponatremia: Code(s): E87.1 - Hypo-osmolality and hyponatremia Status: Acute Assessment and Plan: likely secondary liver cirrhosis with contributions from DOMINGO better/Improved s/p gentle IVF hydration dialysis will stabilize as well follow trend of sodium (6) Pancreatitis: Code(s): K85.90 - Acute pancreatitis without necrosis or infection, unspecified Status: Acute Assessment and Plan: suspect alcohol induced pancreatities elevated lipase noted in association with abdominal pain CT scan of abdomen/pelvis noted on admission continue supportive therapy (7) Hypertension: Code(s): I10 - Essential (primary) hypertension Status: Acute Assessment and Plan: reasonable control at this time follow trend of hemodynamics (8) DM2 (diabetes mellitus, type 2): Code(s): E11.9 - Type 2 diabetes mellitus without complications Status: Acute Assessment and Plan: follow accu-cheks glycemic control per hospitalists/manager product marketing Will continue to follow. Subjective Date/time seen: 04/30/23 13:47 Interval history: Follow-up for acute kidney injury/acute renal failure. Tolerated dialysis treatment yesterday and tolerating dialysis treatment at the time of my visit (seen on HD at 1:30PM); still having on/off abdominal pain which is apparently worse with deep inspiration; denies shortness of breath; remains hemodynamically stable. Exam Narrative: General: WD/WN male in NAD Heart: normal S1 and S2; no rub Lungs: cl
--- NOTE | 2023-04-30 13:47 | P.PNNP_ITS ---
Progress Note: A&P Assessment and Plan (1) Acute kidney injury: Code(s): N17.9 - Acute kidney failure, unspecified Status: Acute Assessment and Plan: * normal creatinine in August 2022 (0.91mg/dl) * several possible issues in play: * prerenal factors from nausea/vomiting/diarrhea * chronic prerenal azotemia for decreased ECV from liver cirrhosis/liver physiology * early infection/sepsis (from possible UTI and SBP) leading to ATN * hepatorenal syndrome * relative anemia * evaluation to date: * renal ultrasound negative for obstruction * CPK low * urine electrolytes prerenal (from N/V/D versus liver disease versus combo of both?) * UA suggestive of possible infection * increased urine output s/p IVFs (argues against HRS) * better urine output noted in general * s/p temporary HD catheter (04/29/23) * HD todayand likely again tomorrow * follow trend of repeat labs and UOP for possible renal recovery (2) Alcoholic cirrhosis of liver with ascites: Code(s): K70.31 - Alcoholic cirrhosis of liver with ascites Status: Acute Assessment and Plan: * thought to be secondary to alcoholic liver disease * follows with [facility] Hepatology * resumed drinking recently after the of his * now complicated by: * elevated LFTs * elevated ammonia/hepatic encephalopathy * coagulopathy/elevated INR * worsening ascites * abdominal pain * GI bleed/anemia * vitamin K and FFP for coagulopathy * lactulose for elevated ammonia/hepatic encephalopathy * paracentesis for ascites * treatment of GI bleed/anemia as noted (see #3 and #4) * Gastroenterology following * follow trend of liver enzymes and ammonia (3) GIB (gastrointestinal bleeding): Qualifiers: GI bleed type/associated pathology: unspecified gastrointestinal hemorrhage type Qualified Code(s): K92.2 - Gastrointestinal hemorrhage, unspecified Code(s): K92.2 - Gastrointestinal hemorrhage, unspecified Status: Acute Assessment and Plan: * presumably due to varices and gastritis * s/p EGD earlier today with results noted * PRBC transfusion per protoco; * continue IV PPI and octreotide gtt * Vitamin K/FFP as needed * Gastroenterology following (4) Anemia: Code(s): D64.9 - Anemia, unspecified Status: Acute Assessment and Plan: * partly related to DOMINGO/ARF * start Epogen with dialysis * follow trend of H/H (5) Hyponatremia: Code(s): E87.1 - Hypo-osmolality and hyponatremia Status: Acute Assessment and Plan: * likely secondary liver cirrhosis with contributions from DOMINGO * better/Improved s/p gentle IVF hydration * dialysis will stabilize as well * follow trend of sodium (6) Pancreatitis: Code(s): K85.90 - Acute pancreatitis without necrosis or infection, unspecified Status: Acute Assessment and Plan: * suspect alcohol induced pancreatities * elevated lipase noted in association with abdominal pain * CT scan of abdomen/pelvis noted on admission * continue supportive therapy (7) Hypertension: Code(s): I10 - Essential (primary) hypertension Status: Acute Assessment and Plan: * reasonable control at this time * follow trend of hemodynamics (8) DM2 (diabetes mellitus, type 2): Code(s): E11.9 - Type 2 diabetes mellitus without complications Status: Acute Assessment and Plan: * follow accu-cheks * glycemic control per hospitalists/clinical education specialist
--- NOTE | 2023-04-30 13:51 | WPDPN ---
Progress Note: A&P Assessment and Plan (1) Sepsis: Code(s): A41.9 - Sepsis, unspecified organism Status: Acute (2) Cholangitis: Code(s): K83.09 - Other cholangitis (3) Alcoholic cirrhosis of liver with ascites: Code(s): K70.31 - Alcoholic cirrhosis of liver with ascites Status: Acute (4) Hyperbilirubinemia: Code(s): E80.6 - Other disorders of bilirubin metabolism Status: Acute (5) Acute hepatic failure: Qualifiers: Hepatic coma status: without hepatic coma Qualified Code(s): K72.00 - Acute and subacute hepatic failure without coma Code(s): K72.00 - Acute and subacute hepatic failure without coma Status: Acute (6) Acute renal failure: Qualifiers: Acute renal failure type: unspecified Qualified Code(s): N17.9 - Acute kidney failure, unspecified Code(s): N17.9 - Acute kidney failure, unspecified Status: Acute (7) Tobacco abuse: Code(s): Z72.0 - Tobacco use Status: Acute (8) Esophageal varices: Code(s): I85.00 - Esophageal varices without bleeding Status: Acute (9) CHF (congestive heart failure): Code(s): I50.9 - Heart failure, unspecified Status: Acute (10) High anion gap metabolic acidosis: Code(s): E87.29 - Other acidosis Status: Acute (11) Coagulopathy: Code(s): D68.9 - Coagulation defect, unspecified Status: Acute (12) Alcohol dependence: Code(s): F10.20 - Alcohol dependence, uncomplicated Status: Acute Plan HPI-Narrative: This is a 53 yo male with PMHx significant for Hepatic Cirrhosis. ETOH dependence, insulin dependent T2DM,patient presents to ED due to jaundice, AMS, poor per oral intake, n/v for the last 2 months, patient is able to give some history however very limited due to obtundation, lethargy, deliroum, states? that has not eaten anything in the last 2 months, last time he had an alcoholic drink was 2 months ago, noted to have jaundice for the last several weeks. Has had melena and BRBPR as well. Preliminary work up was significant for? hemoglobin of 10 hematocrit is 29 platelet is 115, 000, sodium is 126, chloride is 86, bicarb is 18, cr is 7.6, BUN is 86, lactic acid is 3.4 total bili is 34, potassium 5.7 anion gag 17 PT 21 PTT 53 . Patient is currently awaiting bed at tertiary care facility at [facility]. 04/30/2023 interval history: Patient remains somnolent concerning for sepsis, unable to provide detailed review of symptoms, on 04/29 Patient had EGD showed none bleeding esophageal varices and gastritis, 2 large varices were banded, and GI recommended to continue octreotide, and protonix 40mg IV BID, again today patient hgb is dropping, will give 1 units of PRBC, patient is seen by medical office supervisor and seen by Nephrology patient is having HD again today, discussed with medical office supervisor patient has a alcoholic liver cirrhosis [facility]. Subjective Date/time seen: 04/30/23 13:51 Interval history: HPI-Narrative: This is a 53 yo male with PMHx significant for Hepatic Cirrhosis. ETOH dependence, insulin dependent T2DM,patient presents to ED due to jaundice, AMS, poor per oral intake, n/v for the last 2 months, patient is able to give some history however very limited due to obtundation, lethargy, deliroum, states? that has not eaten anything in the last 2 months, last time he had an alcoholic drink was 2 months ago, noted to have jaundice for the last several weeks. Has had melena and BRBPR as well. Preliminary work up was significant for? hemoglobin of 10 hematocrit is 29 platelet is 115, 000, sodium is 126, chloride is 86, bicarb is 18, cr is 7.6, BUN is 86, lactic acid is 3.4 total bili is 34, potassium 5.7 anion gag 17 PT 21 PTT 53 . Patient is currently awaiting bed at tertiary care facility at [facility]. 04/30/2023 interval history: Patient remains somnolent concerning for se
--- NOTE | 2023-04-30 14:35 | WPDGIPROGNO ---
Progress Note: A&P Assessment and Plan (1) Hyperbilirubinemia: Code(s): E80.6 - Other disorders of bilirubin metabolism Status: Acute Assessment and Plan: His bilirubin is up to 34 now. (2) Alcoholic cirrhosis of liver with ascites: Code(s): K70.31 - Alcoholic cirrhosis of liver with ascites Status: Acute Assessment and Plan: He clearly has end-stage liver disease and now is probably in hepatorenal syndrome. His stone splitter was contacted and he has been accepted and is awaiting a bed in [facility]. (3) GIB (gastrointestinal bleeding): Qualifiers: GI bleed type/associated pathology: unspecified gastrointestinal hemorrhage type Qualified Code(s): K92.2 - Gastrointestinal hemorrhage, unspecified Code(s): K92.2 - Gastrointestinal hemorrhage, unspecified Status: Acute Assessment and Plan: He has not shown any overt evidence of bleeding since admission. His hemoglobin however has dropped from 10.9 to 9.5. Last year his hemoglobin was 13. The emergency room physician stated that he had had some coffee-ground emesis before admission. 04/30/2023 he began vomiting blood yesterday. EGD was done showing very large esophageal varices. Two of the largest were able to be banded. Once banded, this occluded the lumen precluding any further treatment. I will anticipate a repeat endoscopy and banding in about 10 days. (4) Elevated lipase: Code(s): R74.8 - Abnormal levels of other serum enzymes Status: Acute Assessment and Plan: Likely pancreatitis due to continued alcohol use. lipase is virtually unchanged, about 1300. He is hungry and therefore we will start him on clear liquid diet now. (5) Hyponatremia: Code(s): E87.1 - Hypo-osmolality and hyponatremia Status: Acute Assessment and Plan: Potassium was low not atypical for cirrhosis. It has been shown that is not necessary to rapidly increase the sodium in cirrhotic stop as it could lead to seizures if increased rapidly and morbidity mortality do not seem to be influenced by the sodium level itself. (6) Acute renal failure: Qualifiers: Acute renal failure type: unspecified Qualified Code(s): N17.9 - Acute kidney failure, unspecified Code(s): N17.9 - Acute kidney failure, unspecified Status: Acute Assessment and Plan: Creatinine which was normal last fall is 7.4 yesterday and now up to 8.1 this morning. This may represent hepatorenal syndrome. Nephrology has been consulted He has been started on hemodialysis. Creatinine which was up to 9.6 is now down to 5.8 after dialysis. Plan I discussed diet and management with web machine tender. We are going to let him try clear liquid diet Subjective Date/time seen: 04/30/23 14:35 although his hemoglobin has dropped a bit, there is no evidence of active bleeding. He had 1 bowel movement which was very dark, likely old blood. Two of the largest varices were banded yesterday. Within a week or 2 we will need to perform additional banding unless he has been transferred to [facility]. He is hungry and wishes to try eating Exam Const: General: no acute distress, ill appearing and other ( a little more alert today) Orientation/consciousness: patient oriented x3 and lethargic HENMT: Head: normal to inspection Ears: hearing grossly normal bilaterally Mouth: Yes Normal oral and palatal mucosa present Eyes: General: appearance normal, both eyes and all related structures Sclera: scleral abnormality bilateral other (Icterus) Neck: Neck: normal visual inspection Chest: Chest palpation & inspection: normal inspection of the chest Resp: Effort & Inspection: normal respiratory effort Auscultation: clear to auscultation bilaterally Cardio: Rate: regular rate Rhythm: regular rhythm GI: Inspection: obesity GI Palp: No abdominal tenderness, Yes Hepatomegaly present
[2023-04-30] MEDS: EPOETIN ALFA-EPBX 10,000 UNITS/ML VIAL 10000 UNITS IV PUSH (14:59)
[2023-04-30 16:56] LABS: Hematocrit 23.4 % (42.0-52.0); Hemoglobin 8.4 g/dL (14.0-18.0); Immature Platelet Fraction Pct 7.4 % (0.9-11.2); Mean Corpuscular HGB Conc 35.9 g/dl (32-36); Mean Corpuscular Hemoglobin 31.9 pg (26-34); Mean Platelet Volume 10.9 fl (7.4-10.4); Platelet Count Result 61 k/mm3 (150-375); Red Blood Count 2.63 M/mm3 (4.6-6.20); Red Cell Distribution Width 20.8 % (11.5-14.5); White Blood Count 9.4 K/mm3 (4.5-10.0)
[2023-04-30] MEDS: MEROPENEM 500 MG in SODIUM CHLORIDE 0.9% IV 100 ML 200 ML IVPB (17:44)
[2023-04-30] MEDS: LABETALOL HCL INJ 100 MG/20 ML VIAL 20 MG IV PUSH (21:12)
[2023-04-30 21:32] LABS: Glucose Point of Care 291 mg/dl (65-105)
[2023-05-01] VITALS (105 sets, daily range): BP systolic 105–177; BP diastolic 14–114; PULSE 72–100; RESP 6–37; TEMP 36–37.2; O2SAT 88–99
[2023-05-01] MEDS: ALBUMIN HUMAN 25% 25 GM/100 ML 100 ML IVPB ×2 (00:05→06:23)
[2023-05-01 00:13] LABS: Glucose Point of Care 275 mg/dl (65-105)
[2023-05-01] MEDS: INSULIN ASPART (*BKC) 100 UNITS/ML SUB-Q ×4 (01:38→17:11)
[2023-05-01 02:03] LABS: Hemoglobin 7.5 g/dL (14.0-18.0); Immature Platelet Fraction Pct 6.7 % (0.9-11.2); Mean Corpuscular HGB Conc 35.9 g/dl (32-36); Mean Corpuscular Hemoglobin 32.6 pg (26-34); Mean Corpuscular Volume 90.9 fl (80-100); Mean Platelet Volume 11.7 fl (7.4-10.4); Platelet Count Result 54 k/mm3 (150-375); Red Cell Distribution Width 21.1 % (11.5-14.5); White Blood Count 8.1 K/mm3 (4.5-10.0)
[2023-05-01 02:15] LABS: Hematocrit 20.9 % (42.0-52.0)
[2023-05-01] MEDS: HYDROmorphone HCL INJ (*CRX) 1 MG/ML SYR IV PUSH ×3 (02:32→17:00)
[2023-05-01 03:48] LABS: Glucose Point of Care 153 mg/dl (65-105)
[2023-05-01 05:49] LABS: Basophils Percent Auto 0.1 % (0.2-1.2); Eosinophils Percent Auto 0.3 % (0-4.4); Hematocrit 21.7 % (42.0-52.0); Hemoglobin 7.7 g/dL (14.0-18.0); Immature Granulocyte Absolute 0.13 K/mm3 (0.00-0.031); Immature Granulocyte Percent A 1.5 % (0-0.5); Immature Platelet Fraction Pct 6.9 % (0.9-11.2); Lymphocytes Absolute Auto 0.67 K/mm3 (0.9-3.2); Lymphocytes Percent Auto 7.8 % (18.3-44.2); Mean Corpuscular HGB Conc 35.5 g/dl (32-36); Mean Corpuscular Hemoglobin 32.4 pg (26-34); Mean Corpuscular Volume 91.2 fl (80-100); Mean Platelet Volume 10.9 fl (7.4-10.4); Monocytes Percent Auto 11.1 % (2.6-8.5); Neutrophils Absolute Auto 6.8 K/mm3 (1.3-6.7); Neutrophils Percent Auto 79.2 % (45.5-73.1); Nucleated Red Blood Cells Absolute Auto 0.1 K/mm3 (0.0-0.012); Nucleated Red Blood Cells Perc 1.2 % (0.0-0.2); Platelet Count Result 56 k/mm3 (150-375); Red Blood Count 2.38 M/mm3 (4.6-6.20); Red Cell Distribution Width 21.2 % (11.5-14.5); White Blood Count 8.6 K/mm3 (4.5-10.0)
[2023-05-01 05:58] LABS: INR 2.1; Prothrombin Time 24.5 Seconds (11.1-14.7)
[2023-05-01 06:18] LABS: Anisocytosis 2+ (NORMAL); Platelet Estimate Decreased (Adequate); Schistocytes None Seen (NORMAL); Target Cells 1+ (NORMAL)
[2023-05-01 06:19] LABS: Basophilic Stippling 1+ (NORMAL)
[2023-05-01 06:20] LABS: Alanine Aminotransferase 131 U/L (6-50); Albumin Level 4.3 g/dL (3.5-5.1); Alkaline Phosphatase 108 U/L (38-126); Ammonia 28 umol/L (9-30); Anion Gap 14 mmol/L (8-16); Aspartate Amino Transferase 238 U/L (17-59); Bilirubin,Total 33.6 mg/dL (0.2-1.3); Blood Urea Nitrogen 68 mg/dL (9-20); Calcium 9.3 mg/dL (8.4-10.2); Carbon Dioxide 26 mmol/L (22-30); Chloride 96 mmol/L (98-107); Estimated CRCL calculation 26 ml/min; Estimated Glomerular Filt Rate 17; Glucose 242 mg/dL (65-110); Lipase 1151 U/L (23-300); Potassium 3.8 mmol/L (3.4-5.0); Sodium 136 mmol/L (137-145)
[2023-05-01] MEDS: HYDROCORTISONE SODIUM SUCCINATE 100 MG/2 ML VIAL IV PUSH (06:24)
[2023-05-01 06:47] LABS: Glucose Point of Care 250 mg/dl (65-105)
[2023-05-01] MEDS: INSULIN GLARGINE (*BKC) 100 UNITS/ML 25 UNITS SUB-Q (08:47)
[2023-05-01] MEDS: LACTULOSE 20 GM/30 ML UDC PO ×2 (08:48→16:53)
[2023-05-01] MEDS: PROPRANOLOL HCL 10 MG TABLET PO (08:48)
[2023-05-01] MEDS: PANTOPRAZOLE SODIUM IV 40 MG VIAL IV PUSH (08:48)
[2023-05-01] MEDS: rifAXIMin 550 MG TABLET PO (08:48)
--- NOTE | 2023-05-01 08:57 | WPDINTPN ---
Progress Note: A&P Assessment and Plan (1) Sepsis: Code(s): A41.9 - Sepsis, unspecified organism Status: Acute Assessment and Plan: Secondary to SBP and UTI Status post paracentesis and peritoneal fluid was cloudy with 848 nucleated cells Continue meropenem Urine and blood culture ordered and negative Blood pressure adequate at this time and patient not requiring vasopressors Off iV fluids now (2) GIB (gastrointestinal bleeding): Qualifiers: GI bleed type/associated pathology: unspecified gastrointestinal hemorrhage type Qualified Code(s): K92.2 - Gastrointestinal hemorrhage, unspecified Code(s): K92.2 - Gastrointestinal hemorrhage, unspecified Status: Acute Assessment and Plan: Secondary to esophageal varices Continue to monitor hemoglobin but now changed to q.12 hours Continue iV PPI q.12 hours, octreotide infusion 04/28 Vitamin K IM 10 mg 04/29 underwent EGD which showed nonbleeding esophageal varices, gastritis intraluminal gastric blood. Patient underwent band ligation of the varices 04/29 2 units PRBC, 2 units of FFP and DDAVP was given GI following Liquid diet DC octreotide infusion and will start propranolol (3) Alcoholic cirrhosis of liver with ascites: Code(s): K70.31 - Alcoholic cirrhosis of liver with ascites Status: Acute Assessment and Plan: Patient has chronic cirrhosis secondary to alcoholic liver disease and is normally followed at [facility] He has resumed drinking alcohol after of his and now presents with elevated liver enzymes, ammonia, INR, ascites and abdominal pain His discriminant function is 67.6 and he has been on hydrocortisone. 05/01 switch to Solu-Medrol Vitamin K and FFP was given for coagulopathy Treatment of GI bleed as above Lactulose for hepatic encephalopathy and ammonia level is improved Monitor INR liver enzymes ammonia (4) Acute renal failure: Qualifiers: Acute renal failure type: unspecified Qualified Code(s): N17.9 - Acute kidney failure, unspecified Code(s): N17.9 - Acute kidney failure, unspecified Status: Acute Assessment and Plan: Acute renal failure likely secondary to prerenal etiology like dehydration hypotension and sepsis which may have progress to ATN. Patient also has possibility of hepatorenal syndrome Although his urine output was improving but was still very low 04/29 Creatinine increased to 9.6 BUN 137 which may be artificially elevated due to GI bleed. For discussion with Dr. Baig from Nephrology, decision was made to initiate dialysis. Temporary dialysis catheter was placed and patient underwent hemodialysis and tolerated well 04/30 2nd hemodialysis session [address] scan did not show any hydronephrosis or obstruction 05/01 patient is scheduled for another hemodialysis session today Monitor urine output electrolytes and creatinine (5) Coagulopathy: Code(s): D68.9 - Coagulation defect, unspecified Status: Acute Assessment and Plan: Secondary to liver dysfunction 04/28 Vitamin K 10 mg IM x1 04/29 patient was given 2 units of FFP patient and DDAVP (6) Hyponatremia: Code(s): E87.1 - Hypo-osmolality and hyponatremia Status: Acute Assessment and Plan: Chronic secondary to cirrhosis Improved Monitor sodium level (7) Hyperbilirubinemia: Code(s): E80.6 - Other disorders of bilirubin metabolism Status: Acute Assessment and Plan: See above (8) Alcoholic hepatitis: Code(s): K70.10 - Alcoholic hepatitis without ascites Status: Acute Assessment and Plan: See above (9) Esophageal varices: Code(s): I85.00 - Esophageal varices without bleeding Status: Acute Assessment and Plan: See above (10) Hepatic encephalopathy: Code(s): K76.82 - Hepatic encephalopathy Status: Acute Assessment and Plan: See above (11) Abdominal
[2023-05-01] MEDS: EPOETIN ALFA-EPBX 10,000 UNITS/ML VIAL 10000 UNITS IV PUSH (11:40)
--- NOTE | 2023-05-01 11:40 | PM.PNNEP ---
Progress Note: A&P Assessment and Plan (1) Acute kidney injury: Code(s): N17.9 - Acute kidney failure, unspecified Status: Acute Assessment and Plan: normal creatinine in August 2022 (0.91mg/dl) several possible issues in play: prerenal factors from nausea/vomiting/diarrhea chronic prerenal azotemia for decreased ECV from liver cirrhosis/liver physiology early infection/sepsis (from possible UTI and SBP) leading to ATN hepatorenal syndrome relative anemia evaluation to date: renal ultrasound negative for obstruction CPK low urine electrolytes prerenal (from N/V/D versus liver disease versus combo of both?) UA suggestive of possible infection increased urine output s/p IVFs (argues against HRS) better urine output noted in general s/p temporary HD catheter (04/29/23) HD today follow trend of repeat labs and UOP for possible renal recovery (2) Alcoholic cirrhosis of liver with ascites: Code(s): K70.31 - Alcoholic cirrhosis of liver with ascites Status: Acute Assessment and Plan: thought to be secondary to alcoholic liver disease follows with [facility] Hepatology resumed drinking recently after the of his now complicated by: elevated LFTs elevated ammonia/hepatic encephalopathy coagulopathy/elevated INR worsening ascites abdominal pain GI bleed/anemia vitamin K and FFP for coagulopathy lactulose for elevated ammonia/hepatic encephalopathy paracentesis for ascites treatment of GI bleed/anemia as noted (see #3 and #4) Gastroenterology following follow trend of liver enzymes and ammonia (3) GIB (gastrointestinal bleeding): Qualifiers: GI bleed type/associated pathology: unspecified gastrointestinal hemorrhage type Qualified Code(s): K92.2 - Gastrointestinal hemorrhage, unspecified Code(s): K92.2 - Gastrointestinal hemorrhage, unspecified Status: Acute Assessment and Plan: presumably due to varices and gastritis s/p EGD earlier today with results noted PRBC transfusion per protoco; continue IV PPI and octreotide gtt Vitamin K/FFP as needed Gastroenterology following (4) Anemia: Code(s): D64.9 - Anemia, unspecified Status: Acute Assessment and Plan: partly related to DOMINGO/ARF start Epogen with dialysis follow trend of H/H (5) Hyponatremia: Code(s): E87.1 - Hypo-osmolality and hyponatremia Status: Acute Assessment and Plan: likely secondary liver cirrhosis with contributions from DOMINGO better/Improved s/p gentle IVF hydration dialysis will stabilize as well follow trend of sodium (6) Pancreatitis: Code(s): K85.90 - Acute pancreatitis without necrosis or infection, unspecified Status: Acute Assessment and Plan: suspect alcohol induced pancreatitis elevated lipase noted in association with abdominal pain CT scan of abdomen/pelvis noted on admission continue supportive therapy (7) Hypertension: Code(s): I10 - Essential (primary) hypertension Status: Acute Assessment and Plan: reasonable control at this time follow trend of hemodynamics (8) DM2 (diabetes mellitus, type 2): Code(s): E11.9 - Type 2 diabetes mellitus without complications Status: Acute Assessment and Plan: follow accu-cheks glycemic control per hospitalists/manager salt Will continue to follow. Subjective Date/time seen: 05/01/23 11:40 Interval history: Follow-up for acute kidney injury/acute renal failure. Tolerated dialysis treatment yesterday and tolerating dialysis treatment at the time of my visit (seen on HD at 11:30AM); increasing urine output noted in the last 24 - 48 hours; still endorses abdominal pain and states it seems a bit better in comparison to yesterday; stable hemodynamics noted; still awaiting transfer to [facility]. Exam Narrative: General: WD/WN male in NAD Hear
--- NOTE | 2023-05-01 11:40 | P.PNNP_ITS ---
Progress Note: A&P Assessment and Plan (1) Acute kidney injury: Code(s): N17.9 - Acute kidney failure, unspecified Status: Acute Assessment and Plan: * normal creatinine in August 2022 (0.91mg/dl) * several possible issues in play: * prerenal factors from nausea/vomiting/diarrhea * chronic prerenal azotemia for decreased ECV from liver cirrhosis/liver physiology * early infection/sepsis (from possible UTI and SBP) leading to ATN * hepatorenal syndrome * relative anemia * evaluation to date: * renal ultrasound negative for obstruction * CPK low * urine electrolytes prerenal (from N/V/D versus liver disease versus combo of both?) * UA suggestive of possible infection * increased urine output s/p IVFs (argues against HRS) * better urine output noted in general * s/p temporary HD catheter (04/29/23) * HD today * follow trend of repeat labs and UOP for possible renal recovery (2) Alcoholic cirrhosis of liver with ascites: Code(s): K70.31 - Alcoholic cirrhosis of liver with ascites Status: Acute Assessment and Plan: * thought to be secondary to alcoholic liver disease * follows with [facility] Hepatology * resumed drinking recently after the of his * now complicated by: * elevated LFTs * elevated ammonia/hepatic encephalopathy * coagulopathy/elevated INR * worsening ascites * abdominal pain * GI bleed/anemia * vitamin K and FFP for coagulopathy * lactulose for elevated ammonia/hepatic encephalopathy * paracentesis for ascites * treatment of GI bleed/anemia as noted (see #3 and #4) * Gastroenterology following * follow trend of liver enzymes and ammonia (3) GIB (gastrointestinal bleeding): Qualifiers: GI bleed type/associated pathology: unspecified gastrointestinal hemorrhage type Qualified Code(s): K92.2 - Gastrointestinal hemorrhage, unspecified Code(s): K92.2 - Gastrointestinal hemorrhage, unspecified Status: Acute Assessment and Plan: * presumably due to varices and gastritis * s/p EGD earlier today with results noted * PRBC transfusion per protoco; * continue IV PPI and octreotide gtt * Vitamin K/FFP as needed * Gastroenterology following (4) Anemia: Code(s): D64.9 - Anemia, unspecified Status: Acute Assessment and Plan: * partly related to DOMINGO/ARF * start Epogen with dialysis * follow trend of H/H (5) Hyponatremia: Code(s): E87.1 - Hypo-osmolality and hyponatremia Status: Acute Assessment and Plan: * likely secondary liver cirrhosis with contributions from DOMINGO * better/Improved s/p gentle IVF hydration * dialysis will stabilize as well * follow trend of sodium (6) Pancreatitis: Code(s): K85.90 - Acute pancreatitis without necrosis or infection, unspecified Status: Acute Assessment and Plan: * suspect alcohol induced pancreatitis * elevated lipase noted in association with abdominal pain * CT scan of abdomen/pelvis noted on admission * continue supportive therapy (7) Hypertension: Code(s): I10 - Essential (primary) hypertension Status: Acute Assessment and Plan: * reasonable control at this time * follow trend of hemodynamics (8) DM2 (diabetes mellitus, type 2): Code(s): E11.9 - Type 2 diabetes mellitus without complications Status: Acute Assessment and Plan: * follow accu-cheks * glycemic control per hospitalists/senior talent acquisition specialist Will continue to fo
[2023-05-01 12:46] LABS: Glucose Point of Care 250 mg/dl (65-105)
[2023-05-01 12:46] LABS: Glucose Point of Care 117 mg/dl (65-105)
--- NOTE | 2023-05-01 12:55 | WPDGIPROGNO ---
Progress Note: A&P Assessment and Plan (1) Hyperbilirubinemia: Code(s): E80.6 - Other disorders of bilirubin metabolism Status: Acute Assessment and Plan: His bilirubin is Consistently in the low 30s. (2) Alcoholic cirrhosis of liver with ascites: Code(s): K70.31 - Alcoholic cirrhosis of liver with ascites Status: Acute Assessment and Plan: He clearly has end-stage liver disease and now is probably in hepatorenal syndrome. His oncology rep was contacted and he has been accepted and is awaiting a bed in [facility]. 05/01/2023 we have not yet heard of imminent transfer to [facility]. (3) GIB (gastrointestinal bleeding): Qualifiers: GI bleed type/associated pathology: unspecified gastrointestinal hemorrhage type Qualified Code(s): K92.2 - Gastrointestinal hemorrhage, unspecified Code(s): K92.2 - Gastrointestinal hemorrhage, unspecified Status: Acute Assessment and Plan: He has not shown any overt evidence of bleeding since admission. His hemoglobin however has dropped from 10.9 to 9.5. Last year his hemoglobin was 13. The emergency room physician stated that he had had some coffee-ground emesis before admission. 04/30/2023 he began vomiting blood yesterday. EGD was done showing very large esophageal varices. Two of the largest were able to be banded. Once banded, this occluded the lumen precluding any further treatment. I will anticipate a repeat endoscopy and banding in about 10 days. (4) Elevated lipase: Code(s): R74.8 - Abnormal levels of other serum enzymes Status: Acute Assessment and Plan: Likely pancreatitis due to continued alcohol use. lipase is virtually unchanged, about 1300. He is hungry and therefore we will start him on clear liquid diet now. Lipase today 1151, Slowly coming down. (5) Hyponatremia: Code(s): E87.1 - Hypo-osmolality and hyponatremia Status: Acute Assessment and Plan: Sodium was low not atypical for cirrhosis. It has been shown that is not necessary to rapidly increase the sodium in cirrhotics as it could lead to seizures if increased rapidly and morbidity mortality do not seem to be influenced by the sodium level itself. (6) Acute renal failure: Qualifiers: Acute renal failure type: unspecified Qualified Code(s): N17.9 - Acute kidney failure, unspecified Code(s): N17.9 - Acute kidney failure, unspecified Status: Acute Assessment and Plan: Creatinine which was normal last fall is 7.4 yesterday and now up to 8.1 this morning. This may represent hepatorenal syndrome. Nephrology has been consulted He has been started on hemodialysis. Creatinine which was up to 9.6 is now down to 5.8 after dialysis. Plan I discussed diet and management with heavy repairer. We are going to let him try clear liquid diet will advance now to full liquids Subjective Date/time seen: 05/01/23 12:55 He is tolerating clear liquids. He thinks he might like to try a little more but is not intensely hungry. There has been no sign of bleeding overnight. Explain that because of the banding of varices, which nearly fill the lumen of his distal esophagus, that we need to wait a couple days before giving him solid food. Will probably do that tomorrow. He has mild generalized abdominal discomfort. Exam Const: General: no acute distress, ill appearing and other ( a little more alert today) Orientation/consciousness: patient oriented x3 and lethargic HENMT: Head: normal to inspection Ears: hearing grossly normal bilaterally Mouth: Yes Normal oral and palatal mucosa present Eyes: General: appearance normal, both eyes and all related structures Sclera: scleral abnormality bilateral other (Icterus) Neck: Neck: normal visual inspection Chest: Chest palpation & inspection: normal inspection of the chest Resp: Effort & Inspectio
--- NOTE | 2023-05-01 13:04 | PCPTNOTE ---
received PT orders; today's progress dr report states awaiting transfer to [facility] / HOLD PT eval at this time.
[2023-05-01 14:04] LABS: Glucose Peritoneal Fluid 156 mg/dL; LDH Peritoneal Fluid 133 U/L (<63); Total Protein Peritoneal Fluid <3.0 g/dL
--- NOTE | 2023-05-01 14:58 | WPDPN ---
Progress Note: A&P Assessment and Plan (1) Sepsis: Code(s): A41.9 - Sepsis, unspecified organism Status: Acute (2) Cholangitis: Code(s): K83.09 - Other cholangitis (3) Alcoholic cirrhosis of liver with ascites: Code(s): K70.31 - Alcoholic cirrhosis of liver with ascites Status: Acute (4) Hyperbilirubinemia: Code(s): E80.6 - Other disorders of bilirubin metabolism Status: Acute (5) Acute hepatic failure: Qualifiers: Hepatic coma status: without hepatic coma Qualified Code(s): K72.00 - Acute and subacute hepatic failure without coma Code(s): K72.00 - Acute and subacute hepatic failure without coma Status: Acute (6) Acute renal failure: Qualifiers: Acute renal failure type: unspecified Qualified Code(s): N17.9 - Acute kidney failure, unspecified Code(s): N17.9 - Acute kidney failure, unspecified Status: Acute (7) Tobacco abuse: Code(s): Z72.0 - Tobacco use Status: Acute (8) Esophageal varices: Code(s): I85.00 - Esophageal varices without bleeding Status: Acute (9) CHF (congestive heart failure): Code(s): I50.9 - Heart failure, unspecified Status: Acute (10) High anion gap metabolic acidosis: Code(s): E87.29 - Other acidosis Status: Acute (11) Coagulopathy: Code(s): D68.9 - Coagulation defect, unspecified Status: Acute (12) Alcohol dependence: Code(s): F10.20 - Alcohol dependence, uncomplicated Status: Acute Plan HPI-Narrative: This is a 53 yo male with PMHx significant for Hepatic Cirrhosis. ETOH dependence, insulin dependent T2DM,patient presents to ED due to jaundice, AMS, poor per oral intake, n/v for the last 2 months, patient is able to give some history however very limited due to obtundation, lethargy, deliroum, states? that has not eaten anything in the last 2 months, last time he had an alcoholic drink was 2 months ago, noted to have jaundice for the last several weeks. Has had melena and BRBPR as well. Preliminary work up was significant for? hemoglobin of 10 hematocrit is 29 platelet is 115, 000, sodium is 126, chloride is 86, bicarb is 18, cr is 7.6, BUN is 86, lactic acid is 3.4 total bili is 34, potassium 5.7 anion gag 17 PT 21 PTT 53 . Patient is currently awaiting bed at tertiary care facility at [facility]. 05/01/2023 interval history: Patient remains somnolent concerning for sepsis, unable to provide detailed review of symptoms, on arrival, on 04/29 Patient had EGD showed none bleeding esophageal varices and gastritis, 2 large varices were banded, and GI recommended to continue octreotide, and protonix 40mg IV BID, again on 04/30 patient hgb is dropping, gave 1 units of PRBC, today patient hemoglobin is stable, patient is more awake, receiving dialysis, his parents present in the gave updates, patient is seen by choir accompanist and seen by Nephrology on 04/30 discussed with choir accompanist patient has a alcoholic liver cirrhosis, patient is to be seen by procurement engineer, patient is been accepted at [facility] waiting for transfer. Subjective Date/time seen: 05/01/23 14:58 Interval history: HPI-Narrative: This is a 53 yo male with PMHx significant for Hepatic Cirrhosis. ETOH dependence, insulin dependent T2DM,patient presents to ED due to jaundice, AMS, poor per oral intake, n/v for the last 2 months, patient is able to give some history however very limited due to obtundation, lethargy, deliroum, states? that has not eaten anything in the last 2 months, last time he had an alcoholic drink was 2 months ago, noted to have jaundice for the last several weeks. Has had melena and BRBPR as well. Preliminary work up was significant for? hemoglobin of 10 hematocrit is 29 platelet is 115, 000, sodium is 126, chloride is 86, bicarb is 18, cr is 7.6, BUN is 86, lactic acid is 3.4 total bili is 34, potassium 5.7 anion gag 17 PT 21 PTT 53 . Patient is
[2023-05-01] MEDS: CENTRAL LINE FLUSH 10 ML IV PUSH ×2 (16:52→17:11)
[2023-05-01] MEDS: MEROPENEM 500 MG in SODIUM CHLORIDE 0.9% IV 100 ML 200 ML IVPB (17:00)
[2023-05-01 17:20] LABS: Hematocrit 23.5 % (42.0-52.0); Hemoglobin 8.2 g/dL (14.0-18.0); Immature Platelet Fraction Pct 7.5 % (0.9-11.2); Mean Corpuscular HGB Conc 34.9 g/dl (32-36); Mean Corpuscular Hemoglobin 32.2 pg (26-34); Mean Corpuscular Volume 92.2 fl (80-100); Mean Platelet Volume 10.8 fl (7.4-10.4); Platelet Count Result 57 k/mm3 (150-375); Red Blood Count 2.55 M/mm3 (4.6-6.20); Red Cell Distribution Width 21.3 % (11.5-14.5); White Blood Count 9.9 K/mm3 (4.5-10.0)
[2023-05-01 17:25] LABS: Glucose Point of Care 249 mg/dl (65-105)
--- NOTE | 2023-05-01 18:16 | PC.NURSE ---
Patient up to chair with nurse, per therapy they are unable to see him due to having 16 other evals to do today
[2023-05-02 20:28] LABS: Amylase Peritoneal Fluid 24 U/L
--- NOTE | 2023-05-03 13:50 | PM.TDS ---
Transfer Discharge Sum: Prov Provider Date of admission: 04/27/23 20:53 Primary care physician: Sandro Warren DO Admitting clinician: Charlie Hernandez MD Consults: 04/27/23 20:59 Consult to Physician Routine Comment: Consulting Provider: Barby Blevins Reason for consultation: Hepatic/renal failure, GIB, cirrhosis w/ ascites, hyperbili, hyperK/hypoNa Has provider been notified: Yes 04/27/23 21:00 Consult to Physician Routine Comment: Consulting Provider: Tuan Valencia Reason for consultation: GIB, acute renal/hepatic failure Has provider been notified: Yes Consult to Physician Routine Comment: Consulting Provider: Jacob Solorzano Reason for consultation: acute renal/hepatic failure, GIB, cirrhosis w/ ascites, hypoNa, hyperK Has provider been notified: Yes 04/29/23 Care Coordination Consult Routine Comment: Reason for Consult:: Advanced Directives DS: Admitting Diagnosis Discharge Date 05/01/23 Admitting Diagnosis Hepatic Cirrhosis. Transfer Discharge Sum: Med Medications Active and Home Medications: Home Medications lactulose 20 gram/30 mL oral solution 20 g (30 mL) PO BID #1,200 mL 01/14/22 [Rx Confirmed 04/27/23] liraglutide 0.6 mg/0.1 mL (18 mg/3 mL) subcutaneous pen injector (Victoza 2-Jayson) 1.2 mg subcut DAILY 06/06/22 [History Confirmed 04/27/23] albuterol sulfate 90 mcg/actuation aerosol inhaler 2 puff inhalation Q4-6H PRN Shortness Of Breath #8.5 grams 08/12/22 [Rx Confirmed 04/27/23] rifaximin 550 mg tablet (Xifaxan) 550 mg PO BID #180 tabs 08/26/22 [Rx Confirmed 04/27/23] gabapentin 100 mg capsule See Rx Instructions .Route .COMPLEX #90 caps 02/18/23 [Rx Confirmed 04/27/23] insulin glargine 100 unit/mL (3 mL) subcutaneous pen (Lantus Solostar U-100 Insulin) 20 unit (0.2 mL) subcut DAILY #15 mL 02/18/23 [Rx Confirmed 04/27/23] cyclobenzaprine 10 mg tablet 10 mg PO BID 04/27/23 [History Confirmed 04/27/23] dapagliflozin propanediol 10 mg tablet (Farxiga) 10 mg PO DAILY 04/27/23 [History Confirmed 04/27/23] omeprazole 40 mg capsule,delayed release 40 mg PO DAILY 04/27/23 [History Confirmed 04/27/23] propranolol 10 mg tablet 10 mg PO TID 04/27/23 [History Confirmed 04/27/23] Transfer Discharge Sum: Hosp Hospital Course Hospital course: Julio Cesar Osman Jr. is a 53 year old male Time Spent with Patient Time attestation: Total time spent providing and/or coordinating transfer services: This is a 53 yo male with PMHx significant for Hepatic Cirrhosis. ETOH dependence, insulin dependent T2DM,patient presents to ED due to jaundice, AMS, poor per oral intake, n/v for the last 2 months, patient is able to give some history however very limited due to obtundation, lethargy, deliroum, states? that has not eaten anything in the last 2 months, last time he had an alcoholic drink was 2 months ago, noted to have jaundice for the last several weeks. Has had melena and BRBPR as well. Preliminary work up was significant for? hemoglobin of 10 hematocrit is 29 platelet is 115, 000, sodium is 126, chloride is 86, bicarb is 18, cr is 7.6, BUN is 86, lactic acid is 3.4 total bili is 34, potassium 5.7 anion gag 17 PT 21 PTT 53 . Patient is currently awaiting bed at tertiary care facility at [facility]. 05/01/2023 interval history:??Patient remains somnolent concerning for sepsis, unable to provide detailed review of symptoms, on arrival,? on 04/29 Patient had EGD showed none bleeding esophageal varices and gastritis, 2 large varices were banded, and GI recommended to continue octreotide, and protonix 40mg IV BID, again on 04/30 patient hgb is dropping, gave 1 units of PRBC, today patient hemoglobin is stable, patient is more awake, receiving dialysis, his parents present in the gave updates, ? patient is seen by test fixture designer and seen by Nephrology on 04/30? discussed with test fixture designer patient has a alcoholic liver cirrhosis, patient is to be seen by stoneworking sander,? patient is been accepte
[2023-05-03 22:00] LABS: Albumin Peritoneal Fluid 0.3 g/dL
--- NOTE | 2023-05-13 14:27 | PM.DS ---
DS: Admitting Diagnosis Discharge Date 05/01/23 Admitting Diagnosis Hepatic cirrhosis ? DS: Discharge Diagnosis Discharge Diagnosis (1) Sepsis: Code(s): A41.9 - Sepsis, unspecified organism Status: Acute (2) Cholangitis: Code(s): K83.09 - Other cholangitis (3) Alcoholic cirrhosis of liver with ascites: Code(s): K70.31 - Alcoholic cirrhosis of liver with ascites Status: Acute (4) Hyperbilirubinemia: Code(s): E80.6 - Other disorders of bilirubin metabolism Status: Acute (5) Acute hepatic failure: Qualifiers: Hepatic coma status: without hepatic coma Qualified Code(s): K72.00 - Acute and subacute hepatic failure without coma Code(s): K72.00 - Acute and subacute hepatic failure without coma Status: Acute (6) Acute renal failure: Qualifiers: Acute renal failure type: unspecified Qualified Code(s): N17.9 - Acute kidney failure, unspecified Code(s): N17.9 - Acute kidney failure, unspecified Status: Acute (7) Tobacco abuse: Code(s): Z72.0 - Tobacco use Status: Acute (8) Esophageal varices: Code(s): I85.00 - Esophageal varices without bleeding Status: Acute (9) CHF (congestive heart failure): Code(s): I50.9 - Heart failure, unspecified Status: Acute (10) High anion gap metabolic acidosis: Code(s): E87.29 - Other acidosis Status: Acute (11) Coagulopathy: Code(s): D68.9 - Coagulation defect, unspecified Status: Acute (12) Alcohol dependence: Code(s): F10.20 - Alcohol dependence, uncomplicated Status: Acute Plan HPI-Narrative: This is a 53 yo male with PMHx significant for Hepatic Cirrhosis. ETOH dependence, insulin dependent T2DM,patient presents to ED due to jaundice, AMS, poor per oral intake, n/v for the last 2 months, patient is able to give some history however very limited due to obtundation, lethargy, deliroum, states? that has not eaten anything in the last 2 months, last time he had an alcoholic drink was 2 months ago, noted to have jaundice for the last several weeks. Has had melena and BRBPR as well. Preliminary work up was significant for? hemoglobin of 10 hematocrit is 29 platelet is 115, 000, sodium is 126, chloride is 86, bicarb is 18, cr is 7.6, BUN is 86, lactic acid is 3.4 total bili is 34, potassium 5.7 anion gag 17 PT 21 PTT 53 . Patient is currently awaiting bed at tertiary care facility at [facility]. 05/01/2023 interval history: Patient remains somnolent concerning for sepsis, unable to provide detailed review of symptoms, on arrival, on 04/29 Patient had EGD showed none bleeding esophageal varices and gastritis, 2 large varices were banded, and GI recommended to continue octreotide, and protonix 40mg IV BID, again on 04/30 patient hgb is dropping, gave 1 units of PRBC, today patient hemoglobin is stable, patient is more awake, receiving dialysis, his parents present in the gave updates, patient is seen by forest law and policy professor and seen by Nephrology on 04/30 discussed with forest law and policy professor patient has a alcoholic liver cirrhosis, patient is to be seen by communication studies professor, [facility]. DS: Summary Hospital Course Reason for hospitalization: AMS Narrative: This is a 53 yo male with PMHx significant for Hepatic Cirrhosis. ETOH dependence, insulin dependent T2DM,patient presents to ED due to jaundice, AMS, poor per oral intake, n/v for the last 2 months, patient is able to give some history however very limited due to obtundation, lethargy, deliroum, states? that has not eaten anything in the last 2 months, last time he had an alcoholic drink was 2 months ago, noted to have jaundice for the last several weeks. Has had melena and BRBPR as well. Preliminary work up was significant for? hemoglobin of 10 hematocrit is 29 platelet is 115, 000, sodium is 126, chloride is 86, bicarb is 18, cr is 7.6,
--- NOTE | 2023-05-27 08:55 | PM.TDS ---
Transfer Discharge Sum: Prov Provider Date of admission: 04/27/23 20:53 Primary care physician: Sandro Warren DO Admitting clinician: Charlie Hernandez MD Consults: 04/27/23 20:59 Consult to Physician Routine Comment: Consulting Provider: Barby Blevins Reason for consultation: Hepatic/renal failure, GIB, cirrhosis w/ ascites, hyperbili, hyperK/hypoNa Has provider been notified: Yes 04/27/23 21:00 Consult to Physician Routine Comment: Consulting Provider: Tuan Valencia Reason for consultation: GIB, acute renal/hepatic failure Has provider been notified: Yes Consult to Physician Routine Comment: Consulting Provider: Jacob Solorzano Reason for consultation: acute renal/hepatic failure, GIB, cirrhosis w/ ascites, hypoNa, hyperK Has provider been notified: Yes 04/29/23 Care Coordination Consult Routine Comment: Reason for Consult:: Advanced Directives DS: Admitting Diagnosis Discharge Date 05/01/23 Admitting Diagnosis AMS Transfer Discharge Sum: Med Medications Active and Home Medications: Home Medications lactulose 20 gram/30 mL oral solution 20 g (30 mL) PO BID #1,200 mL 01/14/22 [Rx Confirmed 04/27/23] liraglutide 0.6 mg/0.1 mL (18 mg/3 mL) subcutaneous pen injector (Victoza 2-Jayson) 1.2 mg subcut DAILY 06/06/22 [History Confirmed 04/27/23] albuterol sulfate 90 mcg/actuation aerosol inhaler 2 puff inhalation Q4-6H PRN Shortness Of Breath #8.5 grams 08/12/22 [Rx Confirmed 04/27/23] rifaximin 550 mg tablet (Xifaxan) 550 mg PO BID #180 tabs 08/26/22 [Rx Confirmed 04/27/23] gabapentin 100 mg capsule See Rx Instructions .Route .COMPLEX #90 caps 02/18/23 [Rx Confirmed 04/27/23] insulin glargine 100 unit/mL (3 mL) subcutaneous pen (Lantus Solostar U-100 Insulin) 20 unit (0.2 mL) subcut DAILY #15 mL 02/18/23 [Rx Confirmed 04/27/23] cyclobenzaprine 10 mg tablet 10 mg PO BID 04/27/23 [History Confirmed 04/27/23] dapagliflozin propanediol 10 mg tablet (Farxiga) 10 mg PO DAILY 04/27/23 [History Confirmed 04/27/23] omeprazole 40 mg capsule,delayed release 40 mg PO DAILY 04/27/23 [History Confirmed 04/27/23] propranolol 10 mg tablet 10 mg PO TID 04/27/23 [History Confirmed 04/27/23] Transfer Discharge Sum: Hosp Hospital Course Hospital course: Julio Cesar Osman Jr. is a 53 year old male ota time spent providing and/or coordinating transfer services: This is a 53 yo male with PMHx significant for Hepatic Cirrhosis. ETOH dependence, insulin dependent T2DM,patient presents to ED due to jaundice, AMS, poor per oral intake, n/v for the last 2 months, patient is able to give some history however very limited due to obtundation, lethargy, deliroum, states? that has not eaten anything in the last 2 months, last time he had an alcoholic drink was 2 months ago, noted to have jaundice for the last several weeks. Has had melena and BRBPR as well. Preliminary work up was significant for? hemoglobin of 10 hematocrit is 29 platelet is 115, 000, sodium is 126, chloride is 86, bicarb is 18, cr is 7.6, BUN is 86, lactic acid is 3.4 total bili is 34, potassium 5.7 anion gag 17 PT 21 PTT 53 . Patient is currently awaiting bed at tertiary care facility at [facility]. ?Patient remains somnolent concerning for sepsis, unable to provide detailed review of symptoms, on arrival,? on 04/29 Patient had EGD showed none bleeding esophageal varices and gastritis, 2 large varices were banded, and GI recommended to continue octreotide, and protonix 40mg IV BID, again on 04/30 patient hgb is dropping, gave 1 units of PRBC, today patient hemoglobin is stable, patient is more awake, receiving dialysis, his parents present in the gave updates, ? patient is seen by automation mechanic and seen by Nephrology on 04/30? discussed with automation mechanic patient has a alcoholic liver cirrhosis, patient is to be seen by service developer,? patient is been accepted at [facility]? waiting for transfer. Patent is being transferred to [facility] hospital Time Spent wi
== END 2023-05-01 20:15 | disposition short-term general hospital (02) | DRG 720 ==
LOC: ANHED 16:50 → ANHICU 21:28
PROVIDERS: Emergency Medicine; Internal Medicine; Internal Medicine Gastroenterology; Internal Medicine Nephrology; Admitting Provider Internal Medicine; Emergency Provider Physician Assistant; PCP Family Medicine; Visit Provider Family Medicine
PROC: 0DJ08ZZ Inspection of Upper Intestinal Tract, Via Natural or Artificial Opening Endoscopic (ICD-10-PCS; CPT 43235; principal; 2023-04-29 15:30)
DX: A41.9 Sepsis, unspecified organism (principal); K76.7 Hepatorenal syndrome; I85.11 Secondary esophageal varices with bleeding; N17.9 Acute kidney failure, unspecified; K85.20 Alcohol induced acute pancreatitis without necrosis or infection; K65.2 Spontaneous bacterial peritonitis; D68.9 Coagulation defect, unspecified; E87.1 Hypo-osmolality and hyponatremia; D69.6 Thrombocytopenia, unspecified; E87.20 Acidosis, unspecified; K70.40 Alcoholic hepatic failure without coma; K70.31 Alcoholic cirrhosis of liver with ascites; I50.9 Heart failure, unspecified; E87.5 Hyperkalemia; I11.0 Hypertensive heart disease with heart failure; K70.11 Alcoholic hepatitis with ascites; K83.09 Other cholangitis; K76.82 Hepatic encephalopathy; K76.6 Portal hypertension; K29.70 Gastritis, unspecified, without bleeding; K21.9 Gastro-esophageal reflux disease without esophagitis; I87.1 Compression of vein; E80.6 Other disorders of bilirubin metabolism; E11.9 Type 2 diabetes mellitus without complications; E78.5 Hyperlipidemia, unspecified; G89.29 Other chronic pain; G25.81 Restless legs syndrome; F10.20 Alcohol dependence, uncomplicated; F17.210 Nicotine dependence, cigarettes, uncomplicated; F41.1 Generalized anxiety disorder; F32.A Depression, unspecified; Z86.010 Personal history of colon polyps; Z87.11 Personal history of peptic ulcer disease
CPT/HCPCS: 36415; 36430; 49083; 71046; 74176; 76775; 80053; 80074; 80307; 81001; 82042; 82140; 82150; 82274; 82550; 82570; 82945; 82948; 83605; 83615; 83690; 83735; 83880; 84100; 84157; 84300; 84478; 84484; 85025; 85027; 85055; 85384; 85610; 85730; 86850; 86900; 86901; 86923; 87040; 87070; 87075; 87086; 87205; 89051; 93005; 94640; 96374; 96375; 99285; A9270; C1751; C1752; C9113; G0257; J0330; J0612; J0613; J1170; J1644; J1720; J1815; J2185; J2354; J2543; J2597; J2704; J3010; J3430; J7030; J7040; J7050; P9016; P9017; P9047; Q5105